=== PATIENT | male | born 1965 | race Caucasian/White ===

== ENCOUNTER 2021-09-05 15:59 | Inpatient (IN) | payer BC, SELFPAY ==
--- NOTE | ~2021-09-05 | XR_ITS ---
EXAMINATION: XR KNEE, LEFT CLINICAL INFORMATION: Trauma COMPARISON: Left knee radiographs 08/15/2015 TECHNIQUE: Four views of the left knee. FINDINGS: There are bicompartmental degenerative changes present predominantly involving the medial compartment with narrowing and some osteophytes as well as patellofemoral compartment with some posterior osteophytes. Compared to the prior study from 2016, there has been a somewhat dramatic change in the overall appearance of the bones which have a somewhat moth-eaten appearance with some cortical thickening. There is a suggestion of a lytic lesion present in the proximal fibula best seen on the lateral radiograph. Further evaluation with radionuclide bone scan and/or MRI is indicated. XR/XR knee LT 3V IMPRESSION: 1. No evidence of a traumatic injury. 2. Degenerative changes present in the knee. 3. New abnormal overall appearance with a moth-eaten appearance with some cortical thickening and question of lytic lesions. Radionuclide bone scan and/or MRI is recommended for further evaluation.
--- NOTE | ~2021-09-05 | CT_ITS ---
EXAMINATION: CT ANGIOGRAM OF THE CHEST WITH AND WITHOUT CONTRAST (CT PULMONARY ANGIOGRAM FOR PE) CLINICAL INFORMATION: Reason for Exam tachycardia COMPARISON: None TECHNIQUE: Prior to contrast administration, noncontrast localization images were obtained. Subsequently, multidetector volumetric imaging was performed from the thoracic inlet to below the diaphragms following the administration of 80 mL Omnipaque 350 intravenous contrast. No contrast reaction reported Sagittal, coronal, and MIP oblique sagittal reformatted images were obtained on the CT workstation, uploaded to PACS, and reviewed. This CT examination was performed using dose optimization techniques as appropriate, variously including the following: *Automated exposure control *Adjustment of mA and/or kV according to patient size (this includes techniques or standardized protocols for targeted exams where dose is matched to indication/reason for exam; i.e. extremities or head) *Use of iterative reconstruction technique Total exam dose-length product 282 mGy-cm FINDINGS: QUALITY OF STUDY/CONTRAST BOLUS: Satisfactory. PULMONARY ARTERIES: No central or segmental pulmonary emboli. THORACIC AORTA: No aneurysm or dissection. LUNG: No focal consolidation, nodules or masses. Dependent atelectasis/groundglass changes are present. PLEURA: No pleural effusion or pneumothorax. MEDIASTINUM: Normal heart size. No pericardial effusion. No hilar or mediastinal lymphadenopathy. No evidence of septal bowing or right heart strain. CHEST WALL/AXILLA: No axillary or internal mammary lymphadenopathy. OSSEOUS STRUCTURES: No acute or suspicious osseous abnormality. UPPER ABDOMEN: There is marked fatty infiltration of the pancreas. Hepatic steatosis is present. There is mild splenomegaly No reflux of contrast into the hepatic veins to suggest elevated right heart pressures. CT/CT angio chest PE protocol IMPRESSION: 1. No evidence of pulmonary emboli. 2. Incidental findings including hepatic steatosis and mild splenomegaly. VTE: negative
--- NOTE | ~2021-09-05 | XR_ITS ---
EXAMINATION: XR CHEST CLINICAL INFORMATION: Tachycardia. COMPARISON: No similar priors. TECHNIQUE: AP view of the chest was obtained. FINDINGS: Normal appearance of the cardiomediastinal silhouette. No focal airspace opacities, pleural effusions or pneumothorax. No acute osseous abnormalities. XR/XR chest 1V IMPRESSION: No acute cardiopulmonary findings.
--- NOTE | ~2021-09-05 | XR_ITS ---
EXAMINATION: XR TOES, LEFT CLINICAL INFORMATION: Left first digit swelling COMPARISON: None TECHNIQUE: 3 views of the left toes were obtained. FINDINGS: There is irregularity at the base of the first digit distal phalanx. Osteophytes and sclerosis are seen at this location. Subtle lucency at the articular aspect may represent a nondisplaced fracture of the most medial portion of the distal phalanx base. Moderate degenerative change at the first metatarsophalangeal joint with narrowing and osteophyte formation. Sclerosis present. Mild degenerative change of the midfoot with osteophyte formation. Medial soft tissue swelling. XR/XR toe LT min 2V IMPRESSION: Degenerative changes at the first metatarsophalangeal joint and first interphalangeal joint. Subtle lucency extending to the articulation at the medial aspect of the base of the first digit distal phalanx could represent a nondisplaced fracture. Correlate with location of pain.
[2021-09-05 16:04] VITALS: BP 113/86; PULSE 156; RESP 24; TEMP 36.3; O2SAT 97; BMI 25.4
--- NOTE | 2021-09-05 16:11 | ECG_ITS ---
Test Reason : tachycardia Blood Pressure : / mmHG Vent. Rate : 151 BPM Atrial Rate : 151 BPM P-R Int : 126 ms QRS Dur : 072 ms QT Int : 260 ms P-R-T Axes : 058 267 052 degrees QTc Int : 412 ms Sinus tachycardia Right superior axis deviation Low voltage QRS Inferior infarct , age undetermined Abnormal ECG No previous ECGs available Referred By: Generic ED Physician Electronically Signed By:KRISTIAN JEFFERY
--- NOTE | 2021-09-05 16:37 | ED_ITS ---
HPI - General Adult General Chief complaint: Weakness Stated complaint: weakness Time Seen by Provider: 09/05/21 16:27 Source: patient and RN notes reviewed History of Present Illness HPI narrative: Patient complaining of general malaise and general weakness getting progressively worse over the last 3 weeks. Patient tested positive for COVID approximately 3 weeks ago. He states his breathing occasionally was difficult but has since recovered. Over the past week, however, he has been getting progressively weaker. He describes it as a general weakness. He was initially able to ambulate 4 days ago without assistance but feeling ?shaky?. He then started using a cane. Today he cannot ambulate without assistance. He denies pain. He states his appetite has been very diminished but he has been drinking liquids. He states his appetite came back yesterday 88 yesterday and today. No abdominal pain. No urinary symptoms. No history of similar issues. He states he used to drink alcohol and daily but cut down significantly since he was diagnosed with COVID and now has stopped altogether. Related Data Home Medications Medication Instructions Recorded Confirmed cholecalciferol (vitamin D3) 25 25 mcg PO DAILY 09/05/21 09/05/21 mcg (1,000 unit) tablet multivitamin 1 tab PO DAILY 09/05/21 09/05/21 Allergies Allergy/AdvReac Type Severity Reaction Status Date / Time No Known Allergies Allergy Verified 09/05/21 16:09 Review of Systems Verdana 4l Constitutional: Verdana 4d Comments: Verdana 4d Verdana 4d Verdana 4d General weakness Verdana 4d Verdana 4l Cardiovascular: Verdana 4d Comments: Verdana 4d Verdana 4d Verdana 4d No chest pain or palpitations Verdana 4d Verdana 4l Respiratory: Verdana 4d Verdana 4d Comments: Verdana 4d Verdana 4d No dyspnea or cough at this time Verdana 4d Verdana 4l Gastrointestinal: Verdana 4d Comments: Verdana 4d Verdana 4d Verdana 4d No nausea vomiting diarrhea. Positive constipation. Positive decreased appetite which has resolved Verdana 4d Verdana 4l Genitourinary: Verdana 4d Verdana 4d Comments: Verdana 4d Verdana 4d No dysuria or hematuria. Verdana 4d Verdana 4l Musculoskeletal: Verdana 4d Comments: Verdana 4d Verdana 4d Verdana 4d No calf pain or tenderness Verdana 4d Verdana 4l Integumentary/Breasts: Verdana 4d Comments: Verdana 4d Verdana 4d Verdana 4d No rash Verdana 4d Verdana 4l Neurologic: Verdana 4d Verdana 4d Comments: Verdana 4d Verdana 4d No focal weakness Verdana 4d [facility] Social History Social History Advance Directives: No Advance Directives Information Provided: No Physical Exam Verdana 4l Vital Signs: Verdana 4d Verdana 4d Vital Signs: Verdana 4d Verdana 4Bd Last Vital Signs Verdana 4d Warm In New 4d Warm In New 4d Temp 97.9 F 09/05/21 20:02 Warm In New 4d Pulse 110 H 09/05/21 20:02 Warm In New 4d Resp 20 09/05/21 20:02 BP 131/85 09/05/21 20:02 Pulse Ox 98 09/05/21 20:02 BMI result Body Mass Index 25.4 Tachycardic to 150 beats per minute Const: Other: Awake and alert in no acute distress Resp: Other: Clear and equal bilaterally without wheezes rales or rhonchi Cardio: Other: Tachycardic and regular at about 150 beats per minute Jugular venous distension: no JVD Skin: Other: Warm and dry Neuro: Other: Nonfocal neurologic exam. Moves all 4 extremities equally. No facial droop. No aphasia. Extrem: Other: No calf tenderness Course Course Course Narrative: Patient with generalized weakness and tachycardia approximately 3 weeks post onset of COVID-19 symptoms. Alcohol abstinence syndrome Pneumonia Pulmonary embolism Dehydration Malnutrition Atrial flutter 6:20 p.m.. Patient's heart rate is now 115 after IV fluids and Ativan IV. Patient states he is feeling somewhat better but still weak. Upon further discussion with patient appears he might of been having visual hallucinations over the past 24 hours or so, consistent with alcohol abstinence syndrome. Will order a dose of phenobarbital IM. Timing and Mark. Hospitalization 6:42 p.m.. Patient apparently attempted to get out of bed slipped to the floor. Complains of contusion to left knee but denies any significant discomfort. X-ray ordered. Haldol IV ordered as well. 7:22 p.m.. X-ray without fracture my interpretation. Radiology reading pending Medical Decision Making Lab Data Result diagrams: 09/05/21 17:18 09/05/21 17:17 Labs: Lab Results 09/05/21 09/05/21 09/05/21 Range/Units 17:17 17:17 17:17 WBC (4.8-10.8) X10*3/uL RBC (4.60-5.80) X10*6/uL Hgb (14.0-18.0) g/dl Hct (42.0-52.0) % MCV (80.0-98.0) fL MCH (27.0-33.0) pg MCHC (31.0-36.0) g/dl RDW (11.0-16.0) % Plt Count (160-400) X10*3/uL MPV (9.4-12.4) fL Immature Gran % (Auto) (0.0-0.4) % Neut % (Auto) (45-73) % Lymph % (Auto) (20-40) % [place] % (Auto) (2-11) % Eos % (Auto) (0-4) % Baso % (Auto) (0-2) % Lymph # (Auto) (1.2-4.9) X10*3/uL [place] # (Auto) (0.1-1.2) X10*3/uL Eos # (Auto) (0.0-0.4) X10*3/uL Baso # (Auto) (0.0-0.2) X10*3/uL Abs Immat Gran (auto) (0.00-0.03) X10*3/uL Absolute Neuts (auto) (2.0-8.3) x10*3/uL Absolute Nucleated RBC (0.0-0.012) X10*3/uL Nucleated RBC % (auto) (0.0-0.2) /100WBC D-Dimer High Sensitivty 288 NG/ML Sodium 135 (135-145) mmol/L Potassium 3.6 (3.3-5.1) mmol/L Chloride 100 (96-108) mmol/L Carbon Dioxide 24 (22-29) mmol/L Anion Gap 15 (12-20) BUN 14 (9-16) mg/dL Creatinine 0.81 (0.5-1.4) mg/dL Estim Creat Clear Calc 99.4 Estimated GFR > 60 Random Glucose 103 (60-115) mg/dL Lactic Acid 1.1 (0.5-2.0) mmol/L Calcium 8.3 L (8.4-10.2) mg/dL Total Bilirubin 1.1 H (0.0-1.0) mg/dL AST 33 (5-37) U/L ALT 27 (0-40) U/L Alkaline Phosphatase 95 (39-117) U/L Troponin I High Sens (<3.5-35.0) ng/L B-Natriuretic Peptide (<100) pg/mL Total Protein 6.3 L (6.5-8.0) g/dL Albumin 3.1 L (3.5-5.0) g/dL TSH (0.32-4.0) uIU/mL COVID-19 (THEO) (Negative) COVID-19 Clin Com 09/05/21 09/05/21 09/05/21 Range/Units 17:17 17:17 17:17 WBC (4.8-10.8) X10*3/uL RBC (4.60-5.80) X10*6/uL Hgb (14.0-18.0) g/dl Hct (42.0-52.0) % MCV (80.0-98.0) fL MCH (27.0-33.0) pg MCHC (31.0-36.0) g/dl RDW (11.0-16.0) % Plt Count (160-400) X10*3/uL MPV (9.4-12.4) fL Immature Gran % (Auto) (0.0-0.4) % Neut % (Auto) (45-73) % Lymph % (Auto) (20-40) % [place] % (Auto) (2-11) % Eos % (Auto) (0-4) % Baso % (Auto) (0-2) % Lymph # (Auto) (1.2-4.9) X10*3/uL [place] # (Auto) (0.1-1.2) X10*3/uL Eos # (Auto) (0.0-0.4) X10*3/uL Baso # (Auto) (0.0-0.2) X10*3/uL Abs Immat Gran (auto) (0.00-0.03) X10*3/uL Absolute Neuts (auto) (2.0-8.3) x10*3/uL Absolute Nucleated RBC (0.0-0.012) X10*3/uL Nucleated RBC % (auto) (0.0-0.2) /100WBC D-Dimer High Sensitivty NG/ML Sodium (135-145) mmol/L Potassium (3.3-5.1) mmol/L Chloride (96-108) mmol/L Carbon Dioxide (22-29) mmol/L Anion Gap (12-20) BUN (9-16) mg/dL Creatinine (0.5-1.4) mg/dL Estim Creat Clear Calc Estimated GFR Random Glucose (60-115) mg/dL Lactic Acid (0.5-2.0) mmol/L Calcium (8.4-10.2) mg/dL Total Bilirubin (0.0-1.0) mg/dL AST (5-37) U/L ALT (0-40) U/L Alkaline Phosphatase (39-117) U/L Troponin I High Sens 4.0 (<3.5-35.0) ng/L B-Natriuretic Peptide 35 (<100) pg/mL Total Protein (6.5-8.0) g/dL Albumin (3.5-5.0) g/dL TSH 2.37 (0.32-4.0) uIU/mL COVID-19 (THEO) Negative (Negative) COVID-19 Clin Com See Note 09/05/21 Range/Units 17:18 WBC 12.1 H (4.8-10.8) X10*3/uL RBC 4.04 L (4.60-5.80) X10*6/uL Hgb 14.7 (14.0-18.0) g/dl Hct 40.4 L (42.0-52.0) % MCV 100.0 H (80.0-98.0) fL MCH 36.4 H (27.0-33.0) pg MCHC 36.4 H (31.0-36.0) g/dl RDW 12.0 (11.0-16.0) % Plt Count 206 (160-400) X10*3/uL MPV 10.2 (9.4-12.4) fL Immature Gran % (Auto) 0.8 H (0.0-0.4) % Neut % (Auto) 81.8 H (45-73) % Lymph % (Auto) 8.2 L (20-40) % [place] % (Auto) 8.8 (2-11) % Eos % (Auto) 0.2 (0-4) % Baso % (Auto) 0.2 (0-2) % Lymph # (Auto) 1.0 L (1.2-4.9) X10*3/uL [place] # (Auto) 1.1 (0.1-1.2) X10*3/uL Eos # (Auto) 0.0 (0.0-0.4) X10*3/uL Baso # (Auto) 0.0 (0.0-0.2) X10*3/uL Abs Immat Gran (auto) 0.10 H (0.00-0.03) X10*3/uL Absolute Neuts (auto) 9.9 H (2.0-8.3) x10*3/uL Absolute Nucleated RBC 0.000 (0.0-0.012) X10*3/uL Nucleated RBC % (auto) 0.0 (0.0-0.2) /100WBC D-Dimer High Sensitivty NG/ML Sodium (135-145) mmol/L Potassium (3.3-5.1) mmol/L Chloride (96-108) mmol/L Carbon Dioxide (22-29) mmol/L Anion Gap (12-20) BUN (9-16) mg/dL Creatinine (0.5-1.4) mg/dL Estim Creat Clear Calc Estimated GFR Random Glucose (60-115) mg/dL Lactic Acid (0.5-2.0) mmol/L Calcium (8.4-10.2) mg/dL Total Bilirubin (0.0-1.0) mg/dL AST (5-37) U/L ALT (0-40) U/L Alkaline Phosphatase (39-117) U/L Troponin I High Sens (<3.5-35.0) ng/L B-Natriuretic Peptide (<100) pg/mL Total Protein (6.5-8.0) g/dL Albumin (3.5-5.0) g/dL TSH (0.32-4.0) uIU/mL COVID-19 (THEO) (Negative) COVID-19 Clin Com Critical Care Time Critical Care Time Critical Care Time: Yes Total Critical Care Time: 100 Attestation: Critical care time outside of separately billable procedures. Critical care included multiple re-evaluations and multiple medications secondary to mental status change secondary to delirium tremens and severe alcohol abstinence syndrome Discharge Plan Discharge Clinical Impression: Delirium tremens Patient Disposition: Admitted As Inpatient
[2021-09-05 16:53] VITALS: BP 129/91; PULSE 138; RESP 16; TEMP 36.8; O2SAT 97
[2021-09-05] MEDS: 0.9 % Sodium Chloride 1,000 ML 999 ML IV ×2 (17:22→21:10)
[2021-09-05 17:26] LABS: MANUAL DIFF FLAG NO
[2021-09-05] MEDS: LORazepam 2 MG/ML VIAL IVPUSH (17:26)
[2021-09-05 17:28] LABS: Basophils Percent Auto 0.2 % (0-2); Eosinophils Percent Auto 0.2 % (0-4); Hematocrit 40.4 % (42.0-52.0); Hemoglobin 14.7 g/dl (14.0-18.0); Imm Gran Pct Auto 0.8 % (0.0-0.4); Lymphocytes Percent Auto 8.2 % (20-40); Mean Corpuscular HGB Conc 36.4 g/dl (31.0-36.0); Mean Corpuscular Hemoglobin 36.4 pg (27.0-33.0); Mean Platelet Volume 10.2 fL (9.4-12.4); Monocytes Absolute Auto 1.1 X10*3/uL (0.1-1.2); Monocytes Percent Auto 8.8 % (2-11); Neutrophils Absolute Auto 9.9 x10*3/uL (2.0-8.3); Neutrophils Percent Auto 81.8 % (45-73); Platelet Count 206 X10*3/uL (160-400); Red Blood Count 4.04 X10*6/uL (4.60-5.80); White Blood Count 12.1 X10*3/uL (4.8-10.8)
[2021-09-05 17:38] LABS: D Dimer High Sensitivity 288 NG/ML
[2021-09-05 17:43] LABS: Alanine Aminotransferase 27 U/L (0-40); Albumin Level 3.1 g/dL (3.5-5.0); Alkaline Phosphatase 95 U/L (39-117); Anion Gap 15 (12-20); Aspartate Amino Transferase 33 U/L (5-37); Bilirubin Total 1.1 mg/dL (0.0-1.0); Blood Urea Nitrogen 14 mg/dL (9-16); Calcium 8.3 mg/dL (8.4-10.2); Carbon Dioxide 24 mmol/L (22-29); Chloride 100 mmol/L (96-108); Creatinine Clr Calc Pharmacy 99.4; Estimated Glomerular Filt Rate > 60; Glucose Random 103 mg/dL (60-115); Potassium 3.6 mmol/L (3.3-5.1); Sodium 135 mmol/L (135-145); Total Protein 6.3 g/dL (6.5-8.0)
[2021-09-05 17:46] LABS: B Type Natriuretic Peptide 35 pg/mL (<100)
[2021-09-05 17:54] LABS: COVID-19 Test Negative (Negative); IDNOW Serial# 55D5AD1C
[2021-09-05 18:02] LABS: TSH reflex Free T4 2.37 uIU/mL (0.32-4.0)
[2021-09-05 18:40] VITALS: BP 148/77; PULSE 119; RESP 16; O2SAT 97
--- NOTE | 2021-09-05 19:06 | PHA.MEDREC ---
Pharmacy Consult ? Medication Reconciliation Pharmacy has completed the medication reconciliation.
[2021-09-05] MEDS: Folic Acid 1 MG in 0.9 % Sodium Chloride 50 ML 100.4 MG IV (19:08)
[2021-09-05] MEDS: Haloperidol Lactate 5 MG/ML VIAL 2 MG IVPUSH (19:14)
[2021-09-05] MEDS: PHENobarbitaL sodium 130 MG/ML VIAL IM (19:14)
[2021-09-05 20:02] VITALS: BP 131/85; PULSE 110; RESP 20; TEMP 36.6; O2SAT 98
[2021-09-05] MEDS: Thiamine HCL 100 MG in 0.9 % Sodium Chloride 100 ML 202 MG IV (20:03)
[2021-09-05 20:14] LABS: Appearance Urine CLEAR; Color Urine DK YELLOW; Glucose Urine UA NEG (NEG); Leukocyte Esterase Urine NEG (NEG); Nitrite Urine NEG (NEG); Urine Blood NEG (NEG); Urine Ketones 5 MG/DL (NEG); Urine Protein TRACE MG/DL (NEG-TRACE)
--- NOTE | 2021-09-05 20:18 | P.HPHOSP_ITS ---
History of Present Illness Date of Service: 09/05/21 Chief Complaint: Generalized weakness 56-year-old male with a past medical history of alcohol abuse; recently positive COVID-19 about 3 weeks ago; presented to the hospital with a chief complaint of generalized weakness. Patient reports that over the past 2-3 weeks he has been having gradually worsening weakness. To the point he needed assistance to do his activities; hence decided to come to the ER for further evaluation. Reports that he drinks alcohol on a regular basis but since he old COVID positive he tried to cut down on his alcohol. Denies any chest pain or palpitations Denies any fever chills cough or sputum production. Denies any shortness of breath. denies any numbness tingling or focal weakness. Review of all other systems is negative except mentioned above ER course: Per ER team patient exam was essentially benign, noted to be mild nourished, tachycardic, blood pressure stable, saturating 98% on room air, chest x-ray showed no acute findings, repeat COVID test negative, patient was shaky and tremulous; also complains of intermittent visual hallucinations. Patient was started on phenobarb protocol. Also ordered for CT chest with PE protocol given mildly positive D-dimer -results pending; admitted to the hospital for further management PMFSH Social History Advance Directives: No Advance Directives Information Provided: No Meds Allergies Allergy/AdvReac Type Severity Reaction Status Date / Time No Known Allergies Allergy Verified 09/05/21 16:09 Active Medications: Current Medications Acetaminophen (Acetaminophen 325 Mg Tablet) 650 mg PO Q6H PRN PRN Reason: Pain, Mild (Pain Scale 1-3) Enoxaparin Sodium (Enoxaparin Sodium 40 Mg/0.4 Ml Syringe) 40 mg SUBCUT Q24H [place] Famotidine (Famotidine 20 Mg Tablet) 20 mg PO BID [place] Folic Acid (Folic Acid 1 Mg Tablet) 1 mg PO DAILY [place] Stop: 09/09/21 08:59 Hydroxyzine HCl (Hydroxyzine Hcl 25 Mg Tablet) 25 mg PO Q6H PRN PRN Reason: Anxiety Sodium Chloride (Ns) 1,000 mls @ 999 mls/hr IV .Q1H1M [place] Stop: 09/05/21 20:45 Dextrose/Sodium Chloride (D51/2ns) 1,000 mls @ 100 mls/hr IVCONT .Q10H [place] Melatonin (Melatonin 3 Mg Tablet) 6 mg PO BEDTIME PRN PRN Reason: Insomnia Multivitamins/Vitamin C (Multivitamin Tablet) 1 tab PO DAILY PENDING SALE TO [facility] Stop: 09/09/21 08:59 Pharmacy Consult (Consult Rx Perform Med Rec) 1 each MISCELLANE ONCE PRN PRN Reason: Consult order Senna (Sennosides 8.6 Mg Tablet) 17.2 mg PO BEDTIME PRN PRN Reason: Constipation Sodium Chloride (0.9 % Sodium Chloride Flush 3 Ml Syringe) 3 ml IVFLUSH QSHIFT PENDING SALE TO [facility] Thiamine HCl (Thiamine Hcl 100 Mg Tablet) 100 mg PO DAILY PENDING SALE TO [facility] Stop: 09/09/21 08:59 Home Medications Medication Instructions Recorded Confirmed Last Taken Type cholecalciferol 25 mcg PO DAILY 09/05/21 09/05/21 Unknown History (vitamin D3) 25 mcg (1,000 unit) tablet multivitamin 1 tab PO DAILY 09/05/21 09/05/21 Unknown History Physical Exam Verdana 4l Vital Signs and Narrative: Verdana 4d Verdana 4d Vital Signs: Verdana 4d Verdana 4Bd Last Vital Signs Verdana 4d Bricklayer Supervisor New 4d Bricklayer Supervisor New 4d Temp 97.9 F 09/05/21 20:02 Bricklayer Supervisor New 4d Pulse 110 H 09/05/21 20:02 Bricklayer Supervisor New 4d Resp 20 09/05/21 20:02 BP 131/85 09/05/21 20:02 Pulse Ox 98 09/05/21 20:02 BMI result Body Mass Index 25.4 Gen: Appears be in no acute distress. Thin built HEENT: NCAT, dry mucosa. Pulmonary: Vesicular breath sounds, fair air entry CVS: Normal S1-S2 Abdomen: BS+, Soft, Nontender Extremities: Warm well perfused Neuro: Alert and awake. Tremulous, shaky Results Labs CBC and Chem 7: 09/05/21 17:18 09/05/21 17:17 Labs: Laboratory Results - last 24 hr 09/05/21 09/05/21 09/05/21 17:17 17:17 17:17 MCV MCH MCHC RDW Plt Count MPV Immature Gran % (Auto) Neut % (Auto) Lymph % (Auto) [place] % (Auto) Eos % (Auto) Baso % (Auto) Lymph # (Auto) [place] # (Auto) Eos # (Auto) Baso # (Auto) Abs Immat Gran (auto) Absolute Neuts (auto) Absolute Nucleated RBC Nucleated RBC % (auto) D-Dimer High Sensitivty 288 Anion Gap 15 Estim Creat Clear Calc 99.4 Estimated GFR > 60 Random Glucose 103 Calcium 8.3 L Total Bilirubin 1.1 H AST 33 ALT 27 Alkaline Phosphatase 95 Troponin I High Sens 4.0 B-Natriuretic Peptide 35 Total Protein 6.3 L Albumin 3.1 L TSH Urine Color Urine Appearance Urine pH Ur Specific [place] Urine Protein Urine Glucose (UA) Urine Ketones Urine Blood Urine Nitrite Ur Leukocyte Esterase COVID-19 (THEO) COVID-19 Clin Com 09/05/21 09/05/21 09/05/21 17:17 17:17 17:18 MCV 100.0 H MCH 36.4 H MCHC 36.4 H RDW 12.0 Plt Count 206 MPV 10.2 Immature Gran % (Auto) 0.8 H Neut % (Auto) 81.8 H Lymph % (Auto) 8.2 L [place] % (Auto) 8.8 Eos % (Auto) 0.2 Baso % (Auto) 0.2 Lymph # (Auto) 1.0 L [place] # (Auto) 1.1 Eos # (Auto) 0.0 Baso # (Auto) 0.0 Abs Immat Gran (auto) 0.10 H Absolute Neuts (auto) 9.9 H Absolute Nucleated RBC 0.000 Nucleated RBC % (auto) 0.0 D-Dimer High Sensitivty Anion Gap Estim Creat Clear Calc Estimated GFR Random Glucose Calcium Total Bilirubin AST ALT Alkaline Phosphatase Troponin I High Sens B-Natriuretic Peptide Total Protein Albumin TSH 2.37 Urine Color Urine Appearance Urine pH Ur Specific [place] Urine Protein Urine Glucose (UA) Urine Ketones Urine Blood Urine Nitrite Ur Leukocyte Esterase COVID-19 (THEO) Negative COVID-19 Clin Com See Note 09/05/21 20:05 MCV MCH MCHC RDW Plt Count MPV Immature Gran % (Auto) Neut % (Auto) Lymph % (Auto) [place] % (Auto) Eos % (Auto) Baso % (Auto) Lymph # (Auto) [place] # (Auto) Eos # (Auto) Baso # (Auto) Abs Immat Gran (auto) Absolute Neuts (auto) Absolute Nucleated RBC Nucleated RBC % (auto) D-Dimer High Sensitivty Anion Gap Estim Creat Clear Calc Estimated GFR Random Glucose Calcium Total Bilirubin AST ALT Alkaline Phosphatase Troponin I High Sens B-Natriuretic Peptide Total Protein Albumin TSH Urine Color DK YELLOW Urine Appearance CLEAR Urine pH 6.0 Ur Specific [place] 1.010 Urine Protein TRACE Urine Glucose (UA) NEG Urine Ketones 5 Urine Blood NEG Urine Nitrite NEG Ur Leukocyte Esterase NEG COVID-19 (THEO) COVID-19 Clin Com Imaging Radiologist's Impressions: Impressions Chest X-Ray 09/05/21 16:44 IMPRESSION: No acute cardiopulmonary findings. Knee X-Ray 09/05/21 18:52 IMPRESSION: 1. No evidence of a traumatic injury. 2. Degenerative changes present in the knee. 3. New abnormal overall appearance with a moth-eaten appearance with some cortical thickening and question of lytic lesions. Radionuclide bone scan and/or MRI is recommended for further evaluation. Assessment and Plan (1) Alcohol withdrawal: Status: Acute Plan 56-year-old male with a past medical history of alcohol abuse; recently positive COVID-19 about 3 weeks ago; presented to the hospital with a chief complaint of generalized weakness. Alcohol withdrawal: Patient started on phenobarb protocol. Continue thiamine folate and multivitamins. Seizure precautions and aspiration precautions. Fall: Mechanical in nature. Patient fell on the knees in the ER. Knee x-rays were negative. Fall precautions. Recent history of COVID-19 positive: Patient currently saturating 98% on room air. Denies respiratory symptoms. Supportive care. Repeat COVID test negative. Mildly positive D-dimer: CT chest --no PE DVT prophylaxis: Lovenox Code status: Full code Quality Stroke Does the patient have a stroke diagnosis?: No VTE Prior VTE?: No VTE Risk Level:: Medical - moderate - high VTE Device Contraindication: Treatment Not Indicated VTE Drug Contraindication: N/A - Med Ordered
[2021-09-05] MEDS: iohexoL 350 MG/ML 100 ML INFUS..BTL IV (20:56)
[2021-09-05 21:01] LABS: Lactic Acid 1.1 mmol/L (0.5-2.0)
[2021-09-05] MEDS: Enoxaparin Sodium 40 MG/0.4 ML SYRINGE SUBCUT (21:10)
[2021-09-05] MEDS: Famotidine 20 MG TABLET PO (21:13)
[2021-09-05 22:01] VITALS: BP 148/88; PULSE 101; RESP 18; TEMP 36.6; O2SAT 98
[2021-09-05] MEDS: Dextrose 5 % and 0.45 % NaCl 1,000 ML 100 ML IVCONT (23:02)
[2021-09-06] VITALS (7 sets, daily range): BP systolic 103–158; BP diastolic 66–96; PULSE 96–110; RESP 18–20; TEMP 36.5–37.2; O2SAT 98–100; BMI 25.5
[2021-09-06] MEDS: Acetaminophen 325 MG TABLET 650 MG PO ×3 (00:38→14:23)
[2021-09-06 06:33] LABS: MANUAL DIFF FLAG NO
[2021-09-06 06:46] LABS: Basophils Percent Auto 0.3 % (0-2); Eosinophils Percent Auto 0.4 % (0-4); Hemoglobin 12.8 g/dl (14.0-18.0); Imm Gran Abs Auto 0.05 X10*3/uL (0.00-0.03); Imm Gran Pct Auto 0.7 % (0.0-0.4); Lymphocytes Percent Auto 14.9 % (20-40); Mean Corpuscular HGB Conc 35.6 g/dl (31.0-36.0); Mean Corpuscular Hemoglobin 36.8 pg (27.0-33.0); Mean Corpuscular Volume 103.4 fL (80.0-98.0); Mean Platelet Volume 10.7 fL (9.4-12.4); Monocytes Absolute Auto 0.7 X10*3/uL (0.1-1.2); Monocytes Percent Auto 9.7 % (2-11); Neutrophils Absolute Auto 5.1 x10*3/uL (2.0-8.3); Platelet Count 185 X10*3/uL (160-400); Red Blood Count 3.48 X10*6/uL (4.60-5.80); Red Cell Distribution Width 12.2 % (11.0-16.0); White Blood Count 6.9 X10*3/uL (4.8-10.8)
[2021-09-06 06:52] LABS: Anion Gap 12 (12-20); Blood Urea Nitrogen 13 mg/dL (9-16); Calcium 7.7 mg/dL (8.4-10.2); Carbon Dioxide 26 mmol/L (22-29); Chloride 101 mmol/L (96-108); Creatinine Clr Calc Pharmacy 113.4; Estimated Glomerular Filt Rate > 60; Glucose Random 84 mg/dL (60-115); Potassium 3.3 mmol/L (3.3-5.1); Sodium 136 mmol/L (135-145)
--- NOTE | 2021-09-06 09:25 | MHC.CM.PN ---
Male 56 DX ETOH W/D He lives with his . He was independent prior to joelle covid 3 weeks ago. He reports poor po intake, during that time. He has weakness and deconditioning. DP Home with services vs STR. Family will transport pt home at discharge.
[2021-09-06] MEDS: 0.9 % Sodium Chloride Flush 3 ML SYRINGE IVFLUSH ×3 (10:36→19:57)
[2021-09-06] MEDS: Thiamine HCL 100 MG TABLET PO (10:38)
[2021-09-06] MEDS: Folic Acid 1 MG TABLET PO (10:38)
[2021-09-06] MEDS: Multivitamin TABLET 1 TAB PO (10:38)
[2021-09-06] MEDS: PHENobarbitaL sodium 130 MG/ML VIAL 226 MG IM (10:39)
[2021-09-06] MEDS: Famotidine 20 MG TABLET PO ×2 (10:39→19:57)
--- NOTE | 2021-09-06 10:47 | P.PNIM_ITS ---
Subjective Subjective Date of Service: 09/06/21 Interval History: cc: withdrawal interval history: jittery Cardiovascular Cardiovascular: Reports no additional cardiovascular complaints Respiratory Respiratory: Reports no additional respiratory complaints Physical Exam Verdana 4l Vital Signs: Verdana 4d Verdana 4d Vital Signs: Verdana 4d Verdana 4Bd Last Vital Signs Verdana 4d Mineral Technologist New 4d Mineral Technologist New 4d Temp 98.6 F 09/06/21 04:00 Mineral Technologist New 4d Pulse 110 H 09/06/21 04:00 Mineral Technologist New 4d Resp 20 09/06/21 04:00 BP 140/82 H 09/06/21 04:00 Pulse Ox 100 09/06/21 04:00 BMI result Body Mass Index 25.5 General: AO X 3, no acute distress, tremulous Resp: CTA bilateral, no accessory muscles used CVS: S1,S2,RRR GI: soft, non tender, non distended Neuro: motor grossly intact, alert Psych: appropriate affect, appropriate insight Objective Data Active Medications Acetaminophen (Acetaminophen 325 Mg Tablet) 650 mg PO Q6H PRN PRN Reason: Pain, Mild (Pain Scale 1-3) Last Admin: 09/06/21 06:00 Dose: 650 mg Documented by: KIET Enoxaparin Sodium (Enoxaparin Sodium 40 Mg/0.4 Ml Syringe) 40 mg SUBCUT Q24H [facility] Last Admin: 09/05/21 21:10 Dose: 40 mg Documented by: SUMA Famotidine (Famotidine 20 Mg Tablet) 20 mg PO BID [facility] Last Admin: 09/06/21 10:39 Dose: 20 mg Documented by: AMILCAR Folic Acid (Folic Acid 1 Mg Tablet) 1 mg PO DAILY [facility] Stop: 09/09/21 08:59 Last Admin: 09/06/21 10:38 Dose: 1 mg Documented by: AMILCAR Hydroxyzine HCl (Hydroxyzine Hcl 25 Mg Tablet) 25 mg PO Q6H PRN PRN Reason: Anxiety Medication (No Benzodiazepines) 1 each MISCELLANE DAILY [facility] Melatonin (Melatonin 3 Mg Tablet) 6 mg PO BEDTIME PRN PRN Reason: Insomnia Multivitamins/Vitamin C (Multivitamin Tablet) 1 tab PO DAILY [facility] Stop: 09/09/21 08:59 Last Admin: 09/06/21 10:38 Dose: 1 tab Documented by: AMILCAR Pharmacy Consult (Consult Rx Perform Med Rec) 1 each MISCELLANE ONCE PRN PRN Reason: Consult order Phenobarbital (Phenobarbital 15 Mg Tablet) 45 mg PO BID [facility]; Protocol Stop: 09/08/21 09:01 Phenobarbital (Phenobarbital 15 Mg Tablet) 15 mg PO BID [facility]; Protocol Stop: 09/10/21 09:01 Phenobarbital (Phenobarbital 15 Mg Tablet) 15 mg PO DAILY [facility]; Protocol Stop: 09/12/21 09:01 Phenobarbital Sodium (Phenobarbital Sodium 130 Mg/Ml Vial) 170 mg IM Q3H [facility]; Protocol Stop: 09/06/21 15:01 Senna (Sennosides 8.6 Mg Tablet) 17.2 mg PO BEDTIME PRN PRN Reason: Constipation Sodium Chloride (0.9 % Sodium Chloride Flush 3 Ml Syringe) 3 ml IVFLUSH QSHIFT [facility] Last Admin: 09/06/21 10:36 Dose: 3 ml Documented by: AMILCAR Thiamine HCl (Thiamine Hcl 100 Mg Tablet) 100 mg PO DAILY [facility] Stop: 09/09/21 08:59 Last Admin: 09/06/21 10:38 Dose: 100 mg Documented by: AMILCAR Labs CBC & Chem 7: 09/06/21 06:03 09/06/21 06:03 Labs: Laboratory Results - last 24 hr 09/05/21 09/05/21 09/05/21 17:17 17:17 17:17 MCV MCH MCHC RDW Plt Count MPV Immature Gran % (Auto) Neut % (Auto) Lymph % (Auto) Ralls % (Auto) Eos % (Auto) Baso % (Auto) Lymph # (Auto) Ralls # (Auto) Eos # (Auto) Baso # (Auto) Abs Immat Gran (auto) Absolute Neuts (auto) Absolute Nucleated RBC Nucleated RBC % (auto) D-Dimer High Sensitivty 288 Anion Gap 15 Estim Creat Clear Calc 99.4 Estimated GFR > 60 Random Glucose 103 Lactic Acid 1.1 Calcium 8.3 L Total Bilirubin 1.1 H AST 33 ALT 27 Alkaline Phosphatase 95 B-Natriuretic Peptide Total Protein 6.3 L Albumin 3.1 L TSH Urine Color Urine Appearance Urine pH Ur Specific [place] Urine Protein Urine Glucose (UA) Urine Ketones Urine Blood Urine Nitrite Ur Leukocyte Esterase COVID-19 (THEO) COVID-19 Clin Com 09/05/21 09/05/21 09/05/21 17:17 17:17 17:17 MCV MCH MCHC RDW Plt Count MPV Immature Gran % (Auto) Neut % (Auto) Lymph % (Auto) Ralls % (Auto) Eos % (Auto) Baso % (Auto) Lymph # (Auto) Ralls # (Auto) Eos # (Auto) Baso # (Auto) Abs Immat Gran (auto) Absolute Neuts (auto) Absolute Nucleated RBC Nucleated RBC % (auto) D-Dimer High Sensitivty Anion Gap Estim Creat Clear Calc Estimated GFR Random Glucose Lactic Acid Calcium Total Bilirubin AST ALT Alkaline Phosphatase B-Natriuretic Peptide 35 Total Protein Albumin TSH 2.37 Urine Color Urine Appearance Urine pH Ur Specific [place] Urine Protein Urine Glucose (UA) Urine Ketones Urine Blood Urine Nitrite Ur Leukocyte Esterase COVID-19 (THEO) Negative COVID-19 Clin Com See Note 09/05/21 09/05/21 09/06/21 17:18 20:05 06:03 MCV 100.0 H 103.4 H MCH 36.4 H 36.8 H MCHC 36.4 H 35.6 RDW 12.0 12.2 Plt Count 206 185 MPV 10.2 10.7 Immature Gran % (Auto) 0.8 H 0.7 H Neut % (Auto) 81.8 H 74.0 H Lymph % (Auto) 8.2 L 14.9 L Ralls % (Auto) 8.8 9.7 Eos % (Auto) 0.2 0.4 Baso % (Auto) 0.2 0.3 Lymph # (Auto) 1.0 L 1.0 L Ralls # (Auto) 1.1 0.7 Eos # (Auto) 0.0 0.0 Baso # (Auto) 0.0 0.0 Abs Immat Gran (auto) 0.10 H 0.05 H Absolute Neuts (auto) 9.9 H 5.1 Absolute Nucleated RBC 0.000 0.000 Nucleated RBC % (auto) 0.0 0.0 D-Dimer High Sensitivty Anion Gap Estim Creat Clear Calc Estimated GFR Random Glucose Lactic Acid Calcium Total Bilirubin AST ALT Alkaline Phosphatase B-Natriuretic Peptide Total Protein Albumin TSH Urine Color DK YELLOW Urine Appearance CLEAR Urine pH 6.0 Ur Specific [place] 1.010 Urine Protein TRACE Urine Glucose (UA) NEG Urine Ketones 5 Urine Blood NEG Urine Nitrite NEG Ur Leukocyte Esterase NEG COVID-19 (THEO) COVID-19 Clin Com 09/06/21 06:03 MCV MCH MCHC RDW Plt Count MPV Immature Gran % (Auto) Neut % (Auto) Lymph % (Auto) Ralls % (Auto) Eos % (Auto) Baso % (Auto) Lymph # (Auto) Ralls # (Auto) Eos # (Auto) Baso # (Auto) Abs Immat Gran (auto) Absolute Neuts (auto) Absolute Nucleated RBC Nucleated RBC % (auto) D-Dimer High Sensitivty Anion Gap 12 Estim Creat Clear Calc 113.4 Estimated GFR > 60 Random Glucose 84 Lactic Acid Calcium 7.7 L D Total Bilirubin AST ALT Alkaline Phosphatase B-Natriuretic Peptide Total Protein Albumin TSH Urine Color Urine Appearance Urine pH Ur Specific [place] Urine Protein Urine Glucose (UA) Urine Ketones Urine Blood Urine Nitrite Ur Leukocyte Esterase COVID-19 (THEO) COVID-19 Clin Com Assessment and Plan (1) Alcohol withdrawal: Status: Acute Plan 56M presented with fall, found to be in alcohol withdrawal alcohol dependence with withdrawal phenobarb, montior on telemetry, monitor electrolytes and lfts ciwa alcoholic fatty liver alcohol cessation advised Quality Stroke Does the patient have a stroke diagnosis?: No VTE Prior VTE?: No VTE Risk Level:: Medical - moderate - high VTE Device Contraindication: Treatment Not Indicated VTE Drug Contraindication: N/A - Med Ordered
[2021-09-06] MEDS: PHENobarbitaL sodium 130 MG/ML VIAL 170 MG IM ×2 (14:22→17:48)
[2021-09-06] MEDS: hydrOXYzine HCL 25 MG TABLET PO (14:23)
--- NOTE | 2021-09-06 15:40 | MHC.CLN ---
RE: CONSULT RECOMMEND ADDING ENSURE BID TO INCREASE KCALS PT REPORTED POOR PO DURING ACUTE ILLNESS (COVID) PT IS 108%IBW INDICATES ADEQUATE WT FOR HT NO S/S MALNUTRITION AT THIS TIME MONITOR PO INTAKE CLOSELY
--- NOTE | 2021-09-06 18:30 | PC.NURSE ---
At 1820 the patient was attempting to sit on the edge of the bed to use the urinal and his legs gave out from under him. Kathy Villar, of the [employer], was his sitter and was able to reach him before he hit the floor; she was able to ease him down and she and I lifted him back into the bed. We discussed ways to use the urinal while lying in the bed and he agreed to not try to get to the edge of the bed again.
[2021-09-06] MEDS: Enoxaparin Sodium 40 MG/0.4 ML SYRINGE SUBCUT (19:56)
[2021-09-06] MEDS: PHENobarbitaL 15 MG TABLET 45 MG PO (19:56)
[2021-09-06] MEDS: Melatonin 3 MG TABLET 6 MG PO (19:57)
[2021-09-07] MEDS: Acetaminophen 325 MG TABLET 650 MG PO ×4 (01:12→23:44)
[2021-09-07 03:25] VITALS: BP 124/87; PULSE 115; RESP 18; TEMP 37; O2SAT 96
[2021-09-07 06:34] LABS: Hematocrit 36.9 % (42.0-52.0); Hemoglobin 13.4 g/dl (14.0-18.0); Mean Corpuscular HGB Conc 36.3 g/dl (31.0-36.0); Mean Corpuscular Hemoglobin 36.6 pg (27.0-33.0); Mean Corpuscular Volume 100.8 fL (80.0-98.0); Mean Platelet Volume 10.5 fL (9.4-12.4); Platelet Count 243 X10*3/uL (160-400); Red Blood Count 3.66 X10*6/uL (4.60-5.80); Red Cell Distribution Width 11.9 % (11.0-16.0); White Blood Count 9.2 X10*3/uL (4.8-10.8)
[2021-09-07 06:46] LABS: INTERNATIONAL NORM RATIO 1.1 (0.9-1.1); Prothrombin Time 12.7 SEC (9.9-13.0)
[2021-09-07 07:06] VITALS: BP 132/85; PULSE 105; RESP 17; TEMP 36.8; O2SAT 99
[2021-09-07 08:30] LABS: Alanine Aminotransferase 22 U/L (0-40); Albumin Level 2.8 g/dL (3.5-5.0); Alkaline Phosphatase 79 U/L (39-117); Anion Gap 15 (12-20); Aspartate Amino Transferase 31 U/L (5-37); Bilirubin Direct 0.5 mg/dL (0.0-0.5); Blood Urea Nitrogen 10 mg/dL (9-16); Calcium 8.1 mg/dL (8.4-10.2); Carbon Dioxide 25 mmol/L (22-29); Chloride 100 mmol/L (96-108); Creatinine Clr Calc Pharmacy 116.6; Estimated Glomerular Filt Rate > 60; Glucose Fasting 98 mg/dL (60-99); Potassium 3.3 mmol/L (3.3-5.1); Sodium 137 mmol/L (135-145); Total Protein 5.7 g/dL (6.5-8.0)
[2021-09-07 08:52] LABS: Folate 10.7 ng/mL (> or = 4.0); Vitamin B12 282 pg/mL (200-900)
[2021-09-07] MEDS: Famotidine 20 MG TABLET PO ×2 (09:02→20:12)
[2021-09-07] MEDS: Multivitamin TABLET 1 TAB PO (09:02)
[2021-09-07] MEDS: Folic Acid 1 MG TABLET PO (09:03)
[2021-09-07] MEDS: Thiamine HCL 100 MG TABLET PO (09:03)
[2021-09-07] MEDS: 0.9 % Sodium Chloride Flush 3 ML SYRINGE IVFLUSH ×3 (09:03→23:34)
[2021-09-07] MEDS: PHENobarbitaL 15 MG TABLET 45 MG PO ×2 (09:03→20:12)
--- NOTE | 2021-09-07 09:03 | MHC.CM.PN ---
Male 56 Covid recovered DX ETOH W/D PT eval complete. Recommendation from PT is STR. Referrals sent per patient preferences. Anticipate DC 2-3 days. The patient has a1:1 sitter for safety and fall prevention. He will transport via BLS.
[2021-09-07 10:54] VITALS: BP 132/85; PULSE 105; O2SAT 99
[2021-09-07 11:20] VITALS: BP 146/94; PULSE 113; RESP 18; TEMP 37.2; O2SAT 96
--- NOTE | 2021-09-07 11:44 | P.PNIM_ITS ---
Subjective Subjective Date of Service: 09/07/21 Interval History: cc: fall, withdrawal interval history: fell again yesterday Cardiovascular Cardiovascular: Reports no additional cardiovascular complaints Respiratory Respiratory: Reports no additional respiratory complaints Physical Exam Verdana 4l Vital Signs: Verdana 4d Verdana 4d Vital Signs: Verdana 4d Verdana 4Bd Last Vital Signs Verdana 4d Sack Cleaning Hand New 4d Sack Cleaning Hand New 4d Temp 99.0 F 09/07/21 11:20 Sack Cleaning Hand New 4d Pulse 113 H 09/07/21 11:20 Sack Cleaning Hand New 4d Resp 18 09/07/21 11:20 BP 146/94 H 09/07/21 11:20 Pulse Ox 96 09/07/21 11:20 BMI result Body Mass Index 25.5 General: AO X 3, no acute distress, tremulous Resp:? CTA bilateral, no accessory muscles used CVS: S1,S2,RRR GI: soft, non tender, non distended Neuro:? motor grossly intact, alert Psych: appropriate affect, appropriate insight? Objective Data Active Medications Acetaminophen (Acetaminophen 325 Mg Tablet) 650 mg PO Q6H PRN PRN Reason: Pain, Mild (Pain Scale 1-3) Last Admin: 09/07/21 09:02 Dose: 650 mg Documented by: AUGUST Cyanocobalamin (Cyanocobalamin (Vitamin B-12) 1,000 Mcg Tablet) 1,000 mcg PO DAILY [facility] Enoxaparin Sodium (Enoxaparin Sodium 40 Mg/0.4 Ml Syringe) 40 mg SUBCUT Q24H [facility] Last Admin: 09/06/21 19:56 Dose: 40 mg Documented by: KIET Famotidine (Famotidine 20 Mg Tablet) 20 mg PO BID [facility] Last Admin: 09/07/21 09:02 Dose: 20 mg Documented by: AUGUST Folic Acid (Folic Acid 1 Mg Tablet) 1 mg PO DAILY [facility] Stop: 09/09/21 08:59 Last Admin: 09/07/21 09:03 Dose: 1 mg Documented by: AUGUST Hydroxyzine HCl (Hydroxyzine Hcl 25 Mg Tablet) 25 mg PO Q6H PRN PRN Reason: Anxiety Last Admin: 09/06/21 14:23 Dose: 25 mg Documented by: AMILCAR Medication (No Benzodiazepines) 1 each MISCELLANE DAILY [facility] Melatonin (Melatonin 3 Mg Tablet) 6 mg PO BEDTIME PRN PRN Reason: Insomnia Last Admin: 09/06/21 19:57 Dose: 6 mg Documented by: KIET Multivitamins/Vitamin C (Multivitamin Tablet) 1 tab PO DAILY [facility] Stop: 09/09/21 08:59 Last Admin: 09/07/21 09:02 Dose: 1 tab Documented by: AUGUST Pharmacy Consult (Consult Rx Perform Med Rec) 1 each MISCELLANE ONCE PRN PRN Reason: Consult order Phenobarbital (Phenobarbital 15 Mg Tablet) 45 mg PO BID [facility]; Protocol Stop: 09/08/21 09:01 Last Admin: 09/07/21 09:03 Dose: 45 mg Documented by: AUGUST Phenobarbital (Phenobarbital 15 Mg Tablet) 15 mg PO BID [facility]; Protocol Stop: 09/10/21 09:01 Phenobarbital (Phenobarbital 15 Mg Tablet) 15 mg PO DAILY [facility]; Protocol Stop: 09/12/21 09:01 Senna (Sennosides 8.6 Mg Tablet) 17.2 mg PO BEDTIME PRN PRN Reason: Constipation Sodium Chloride (0.9 % Sodium Chloride Flush 3 Ml Syringe) 3 ml IVFLUSH QSHIFT [facility] Last Admin: 09/07/21 09:03 Dose: 3 ml Documented by: AUGUST Thiamine HCl (Thiamine Hcl 100 Mg Tablet) 100 mg PO DAILY [facility] Stop: 09/09/21 08:59 Last Admin: 09/07/21 09:03 Dose: 100 mg Documented by: AUGUST Labs CBC & Chem 7: 09/07/21 05:58 09/07/21 05:58 Labs: Laboratory Results - last 24 hr 09/07/21 09/07/21 09/07/21 05:58 05:58 05:58 MCV 100.8 H MCH 36.6 H MCHC 36.3 H RDW 11.9 Plt Count 243 D MPV 10.5 Absolute Nucleated RBC 0.000 Nucleated RBC % (auto) 0.0 PT 12.7 INR 1.1 Anion Gap Estim Creat Clear Calc Estimated GFR Fasting Glucose Calcium Total Bilirubin Direct Bilirubin AST ALT Alkaline Phosphatase Total Protein Albumin Vitamin B12 282 Folate 10.7 09/07/21 05:58 MCV MCH MCHC RDW Plt Count MPV Absolute Nucleated RBC Nucleated RBC % (auto) PT INR Anion Gap 15 Estim Creat Clear Calc 116.6 Estimated GFR > 60 Fasting Glucose 98 Calcium 8.1 L Total Bilirubin 1.0 Direct Bilirubin 0.5 AST 31 ALT 22 Alkaline Phosphatase 79 Total Protein 5.7 L Albumin 2.8 L Vitamin B12 Folate Microbiology Microbiology Results: Microbiology 09/05/21 17:17 Blood Culture - Final Blood - Venous Coag negative Staphylococcus 09/05/21 17:17 Blood Culture - Preliminary Blood - Venous No growth after 24 hours. Assessment and Plan (1) Alcohol withdrawal: Status: Acute Plan 56M presented with fall, found to be in alcohol withdrawal alcohol dependence with withdrawal phenobarb, monitor electrolytes and lfts ciwa hypokalemia replace and monitor ataxia due to alcohol and b12 deficiency b12 supplement pt alcoholic fatty liver alcohol cessation advised Quality Stroke Does the patient have a stroke diagnosis?: No VTE Prior VTE?: No VTE Risk Level:: Medical - moderate - high VTE Device Contraindication: Treatment Not Indicated VTE Drug Contraindication: N/A - Med Ordered
[2021-09-07] MEDS: Potassium Chloride ER 20 MEQ TAB.ER.PRT 40 MEQ PO (12:02)
[2021-09-07] MEDS: Cyanocobalamin (Vitamin B-12) 1,000 MCG TABLET 1000 MCG PO (12:03)
[2021-09-07 15:43] VITALS: BP 144/74; PULSE 98; RESP 18; TEMP 37.5; O2SAT 100
[2021-09-07 19:53] VITALS: BP 138/82; PULSE 115; RESP 18; TEMP 36.6; O2SAT 99
[2021-09-07] MEDS: Melatonin 3 MG TABLET 6 MG PO (20:11)
[2021-09-07] MEDS: Enoxaparin Sodium 40 MG/0.4 ML SYRINGE SUBCUT (20:11)
[2021-09-07] MEDS: Ibuprofen 400 MG TABLET PO (20:12)
[2021-09-08] VITALS: BP 126/85; PULSE 115; RESP 20; TEMP 36.9; O2SAT 98
[2021-09-08 03:54] VITALS: BP 150/81; PULSE 61; RESP 20; TEMP 36.6; O2SAT 94
[2021-09-08] MEDS: Ibuprofen 400 MG TABLET PO ×2 (04:29→21:14)
[2021-09-08] MEDS: hydrOXYzine HCL 25 MG TABLET PO ×2 (04:30→21:14)
[2021-09-08 07:18] LABS: Anion Gap 12 (12-20); Blood Urea Nitrogen 10 mg/dL (9-16); Calcium 8.1 mg/dL (8.4-10.2); Carbon Dioxide 26 mmol/L (22-29); Chloride 101 mmol/L (96-108); Creatinine Clr Calc Pharmacy 110.3; Estimated Glomerular Filt Rate > 60; Glucose Fasting 93 mg/dL (60-99); Potassium 3.3 mmol/L (3.3-5.1); Sodium 136 mmol/L (135-145)
[2021-09-08 07:19] LABS: Hematocrit 33.8 % (42.0-52.0); Mean Corpuscular HGB Conc 35.5 g/dl (31.0-36.0); Mean Corpuscular Hemoglobin 36.3 pg (27.0-33.0); Mean Corpuscular Volume 102.1 fL (80.0-98.0); Mean Platelet Volume 10.4 fL (9.4-12.4); Platelet Count 222 X10*3/uL (160-400); Red Blood Count 3.31 X10*6/uL (4.60-5.80); Red Cell Distribution Width 11.9 % (11.0-16.0); White Blood Count 8.2 X10*3/uL (4.8-10.8)
[2021-09-08 07:37] VITALS: BP 119/73; PULSE 94; RESP 18; TEMP 36.6; O2SAT 97
[2021-09-08] MEDS: Multivitamin TABLET 1 TAB PO (09:05)
[2021-09-08] MEDS: Famotidine 20 MG TABLET PO ×2 (09:05→21:14)
[2021-09-08] MEDS: Cyanocobalamin (Vitamin B-12) 1,000 MCG TABLET 1000 MCG PO (09:05)
[2021-09-08] MEDS: Thiamine HCL 100 MG TABLET PO (09:05)
[2021-09-08] MEDS: PHENobarbitaL 15 MG TABLET 45 MG PO (09:05)
[2021-09-08] MEDS: Folic Acid 1 MG TABLET PO (09:05)
[2021-09-08] MEDS: 0.9 % Sodium Chloride Flush 3 ML SYRINGE IVFLUSH ×3 (09:06→21:14)
[2021-09-08] MEDS: Potassium Chloride ER 20 MEQ TAB.ER.PRT 40 MEQ PO (10:02)
--- NOTE | 2021-09-08 10:38 | HO.PM.IMPN ---
Subjective Subjective Date of Service: 09/08/21 Interval History: cc: fall, withdrawal interval history: feeling stronger Cardiovascular Cardiovascular: Reports no additional cardiovascular complaints Respiratory Respiratory: Reports no additional respiratory complaints Physical Exam Vital Signs: Vital Signs: Last Vital Signs Temp 97.9 F 09/08/21 07:37 Pulse 94 09/08/21 07:37 Resp 18 09/08/21 07:37 BP 119/73 09/08/21 07:37 Pulse Ox 97 09/08/21 07:37 BMI result Body Mass Index 25.5 General: AO X 3, no acute distress, Resp:? CTA bilateral, no accessory muscles used CVS: S1,S2,RRR GI: soft, non tender, non distended Neuro:? motor grossly intact, alert Psych: appropriate affect, appropriate insight? Objective Data Active Medications Acetaminophen (Acetaminophen 325 Mg Tablet) 650 mg PO Q6H PRN PRN Reason: Pain, Mild (Pain Scale 1-3) Last Admin: 09/07/21 23:44 Dose: 650 mg Documented by: ATUL Cyanocobalamin (Cyanocobalamin (Vitamin B-12) 1,000 Mcg Tablet) 1,000 mcg PO DAILY [facility] Last Admin: 09/08/21 09:05 Dose: 1,000 mcg Documented by: CRISTY Enoxaparin Sodium (Enoxaparin Sodium 40 Mg/0.4 Ml Syringe) 40 mg SUBCUT Q24H [facility] Last Admin: 09/07/21 20:11 Dose: 40 mg Documented by: MORIAH Famotidine (Famotidine 20 Mg Tablet) 20 mg PO BID [facility] Last Admin: 09/08/21 09:05 Dose: 20 mg Documented by: CRISTY Folic Acid (Folic Acid 1 Mg Tablet) 1 mg PO DAILY [facility] Stop: 09/09/21 08:59 Last Admin: 09/08/21 09:05 Dose: 1 mg Documented by: CRISTY Hydroxyzine HCl (Hydroxyzine Hcl 25 Mg Tablet) 25 mg PO Q6H PRN PRN Reason: Anxiety Last Admin: 09/08/21 04:30 Dose: 25 mg Documented by: ATUL Ibuprofen (Ibuprofen 400 Mg Tablet) 400 mg PO Q6H PRN PRN Reason: mild pain Last Admin: 09/08/21 04:29 Dose: 400 mg Documented by: ATUL Medication (No Benzodiazepines) 1 each MISCELLANE DAILY [facility] Melatonin (Melatonin 3 Mg Tablet) 6 mg PO BEDTIME PRN PRN Reason: Insomnia Last Admin: 09/07/21 20:11 Dose: 6 mg Documented by: MORIAH Multivitamins/Vitamin C (Multivitamin Tablet) 1 tab PO DAILY [facility] Stop: 09/09/21 08:59 Last Admin: 09/08/21 09:05 Dose: 1 tab Documented by: CRISTY Pharmacy Consult (Consult Rx Perform Med Rec) 1 each MISCELLANE ONCE PRN PRN Reason: Consult order Phenobarbital (Phenobarbital 15 Mg Tablet) 15 mg PO BID [facility]; Protocol Stop: 09/10/21 09:01 Phenobarbital (Phenobarbital 15 Mg Tablet) 15 mg PO DAILY [facility]; Protocol Stop: 09/12/21 09:01 Senna (Sennosides 8.6 Mg Tablet) 17.2 mg PO BEDTIME PRN PRN Reason: Constipation Sodium Chloride (0.9 % Sodium Chloride Flush 3 Ml Syringe) 3 ml IVFLUSH QSHIFT [facility] Last Admin: 09/08/21 09:06 Dose: 3 ml Documented by: CRISTY Thiamine HCl (Thiamine Hcl 100 Mg Tablet) 100 mg PO DAILY [facility] Stop: 09/09/21 08:59 Last Admin: 09/08/21 09:05 Dose: 100 mg Documented by: CRISTY Labs CBC & Chem 7: 09/08/21 06:28 09/08/21 06:28 Labs: Laboratory Results - last 24 hr 09/08/21 09/08/21 06:28 06:28 MCV 102.1 H MCH 36.3 H MCHC 35.5 RDW 11.9 Plt Count 222 MPV 10.4 Absolute Nucleated RBC 0.000 Nucleated RBC % (auto) 0.0 Anion Gap 12 Estim Creat Clear Calc 110.3 Estimated GFR > 60 Fasting Glucose 93 Calcium 8.1 L Microbiology Microbiology Results: Microbiology 09/05/21 17:17 Blood Culture - Preliminary Blood - Venous No growth after 48 hours. 09/05/21 17:17 Blood Culture - Final Blood - Venous Coag negative Staphylococcus Assessment and Plan (1) Alcohol withdrawal: Status: Acute Plan 56M presented with fall, found to be in alcohol withdrawal alcohol dependence with withdrawal improing, continue phenobarb, monitor electrolytes and lfts ciwa hypokalemia replace and monitor ataxia due to alcohol and b12 deficiency b12 supplement pt reccomending rehab at [facility] alcoholic fatty liver alcohol cessation advised Quality Stroke Does the patient have a stroke diagnosis?: No VTE Prior VTE?: No VTE Risk Level:: Medical - moderate - high VTE Device Contraindication: Treatment Not Indicated VTE Drug Contraindication: N/A - Med Ordered
[2021-09-08 11:17] VITALS: BP 107/71; PULSE 84; RESP 18; TEMP 36.4; O2SAT 99
[2021-09-08 16:00] VITALS: BP 133/82; PULSE 86; TEMP 36.9; O2SAT 99
[2021-09-08] MEDS: Acetaminophen 325 MG TABLET 650 MG PO (16:47)
[2021-09-08 20:00] VITALS: BP 117/65; PULSE 87; TEMP 37.1; O2SAT 99
[2021-09-08] MEDS: Enoxaparin Sodium 40 MG/0.4 ML SYRINGE SUBCUT (21:13)
[2021-09-08] MEDS: PHENobarbitaL 15 MG TABLET PO (21:14)
[2021-09-08] MEDS: Melatonin 3 MG TABLET 6 MG PO (21:14)
[2021-09-09] VITALS: BP 136/86; PULSE 98; RESP 20; TEMP 36.3; O2SAT 99
[2021-09-09 04:00] VITALS: BP 143/86; PULSE 79; RESP 20; TEMP 36.1; O2SAT 100
[2021-09-09 07:32] LABS: Hematocrit 35.6 % (42.0-52.0); Hemoglobin 12.6 g/dl (14.0-18.0); Mean Corpuscular HGB Conc 35.4 g/dl (31.0-36.0); Mean Corpuscular Hemoglobin 36.6 pg (27.0-33.0); Mean Corpuscular Volume 103.5 fL (80.0-98.0); Mean Platelet Volume 11.3 fL (9.4-12.4); Platelet Count 223 X10*3/uL (160-400); Red Blood Count 3.44 X10*6/uL (4.60-5.80); Red Cell Distribution Width 12.1 % (11.0-16.0); White Blood Count 8.3 X10*3/uL (4.8-10.8)
[2021-09-09 07:51] LABS: Anion Gap 14 (12-20); Blood Urea Nitrogen 9 mg/dL (9-16); Calcium 8.2 mg/dL (8.4-10.2); Carbon Dioxide 23 mmol/L (22-29); Chloride 104 mmol/L (96-108); Creatinine Clr Calc Pharmacy 120.1; Estimated Glomerular Filt Rate > 60; Glucose Fasting 88 mg/dL (60-99); Potassium 3.6 mmol/L (3.3-5.1); Sodium 137 mmol/L (135-145)
[2021-09-09 08:00] VITALS: BP 124/73; PULSE 79; RESP 18; TEMP 36.9; O2SAT 100
[2021-09-09] MEDS: PHENobarbitaL 15 MG TABLET PO ×2 (08:55→20:26)
[2021-09-09] MEDS: Famotidine 20 MG TABLET PO ×2 (08:56→20:26)
[2021-09-09] MEDS: Cyanocobalamin (Vitamin B-12) 1,000 MCG TABLET 1000 MCG PO (08:56)
[2021-09-09] MEDS: 0.9 % Sodium Chloride Flush 3 ML SYRINGE IVFLUSH ×2 (08:56→20:30)
--- NOTE | 2021-09-09 09:18 | P.PNIM_ITS ---
Subjective Subjective Date of Service: 09/09/21 Interval History: cc: falls interval history: feeling better Cardiovascular Cardiovascular: Reports no additional cardiovascular complaints Respiratory Respiratory: Reports no additional respiratory complaints Physical Exam Verdana 4l Vital Signs: Verdana 4d Verdana 4d Vital Signs: Verdana 4d Verdana 4Bd Last Vital Signs Verdana 4d Mail Handler New 4d Mail Handler New 4d Temp 98.5 F 09/09/21 08:00 Mail Handler New 4d Pulse 79 09/09/21 08:00 Mail Handler New 4d Resp 18 09/09/21 08:00 BP 124/73 09/09/21 08:00 Pulse Ox 100 09/09/21 08:00 BMI result Body Mass Index 25.5 General: AO X 3, no acute distress, Resp:? CTA bilateral, no accessory muscles used CVS: S1,S2,RRR GI: soft, non tender, non distended Neuro:? motor grossly intact, alert Psych: appropriate affect, appropriate insight? ext: bilateral upper extremity ulnar deviation, with left hand 2nd and 3rd MCP swelling left knee swelling, left hallux ertyhema swelling Objective Data Active Medications Acetaminophen (Acetaminophen 325 Mg Tablet) 650 mg PO Q6H PRN PRN Reason: Pain, Mild (Pain Scale 1-3) Last Admin: 09/08/21 16:47 Dose: 650 mg Documented by: CRISTY Cyanocobalamin (Cyanocobalamin (Vitamin B-12) 1,000 Mcg Tablet) 1,000 mcg PO DAILY [facility] Last Admin: 09/09/21 08:56 Dose: 1,000 mcg Documented by: CRISTY Enoxaparin Sodium (Enoxaparin Sodium 40 Mg/0.4 Ml Syringe) 40 mg SUBCUT Q24H [facility] Last Admin: 09/08/21 21:13 Dose: 40 mg Documented by: ATUL Famotidine (Famotidine 20 Mg Tablet) 20 mg PO BID [facility] Last Admin: 09/09/21 08:56 Dose: 20 mg Documented by: CRISTY Hydroxyzine HCl (Hydroxyzine Hcl 25 Mg Tablet) 25 mg PO Q6H PRN PRN Reason: Anxiety Last Admin: 09/08/21 21:14 Dose: 25 mg Documented by: ATUL Ibuprofen (Ibuprofen 400 Mg Tablet) 400 mg PO Q6H PRN PRN Reason: mild pain Last Admin: 09/08/21 21:14 Dose: 400 mg Documented by: ATUL Medication (No Benzodiazepines) 1 each MISCELLANE DAILY [facility] Melatonin (Melatonin 3 Mg Tablet) 6 mg PO BEDTIME PRN PRN Reason: Insomnia Last Admin: 09/08/21 21:14 Dose: 6 mg Documented by: ATUL Pharmacy Consult (Consult Rx Perform Med Rec) 1 each MISCELLANE ONCE PRN PRN Reason: Consult order Phenobarbital (Phenobarbital 15 Mg Tablet) 15 mg PO BID [facility]; Protocol Stop: 09/10/21 09:01 Last Admin: 09/09/21 08:55 Dose: 15 mg Documented by: CRISTY Phenobarbital (Phenobarbital 15 Mg Tablet) 15 mg PO DAILY [facility]; Protocol Stop: 09/12/21 09:01 Senna (Sennosides 8.6 Mg Tablet) 17.2 mg PO BEDTIME PRN PRN Reason: Constipation Sodium Chloride (0.9 % Sodium Chloride Flush 3 Ml Syringe) 3 ml IVFLUSH QSHIFT [facility] Last Admin: 09/09/21 08:56 Dose: 3 ml Documented by: CRISTY Labs CBC & Chem 7: 09/09/21 07:05 09/09/21 07:05 Labs: Laboratory Results - last 24 hr 09/09/21 09/09/21 07:05 07:05 MCV 103.5 H MCH 36.6 H MCHC 35.4 RDW 12.1 Plt Count 223 MPV 11.3 Absolute Nucleated RBC 0.000 Nucleated RBC % (auto) 0.0 Anion Gap 14 Estim Creat Clear Calc 120.1 Estimated GFR > 60 Fasting Glucose 88 Calcium 8.2 L Assessment and Plan (1) Alcohol withdrawal: Status: Acute Plan 56M presented with fall, found to be in alcohol withdrawal alcohol dependence with withdrawal improving, continue phenobarb, monitor electrolytes ciwa hypokalemia replace, monitor ulnar deviation concern for inflammatory arthritis check RF, anti ccp, [place] ataxia due to alcohol and b12 deficiency b12 supplement pt reccomending rehab at [facility] alcoholic fatty liver alcohol cessation advised Quality Stroke Does the patient have a stroke diagnosis?: No VTE Prior VTE?: No VTE Risk Level:: Medical - moderate - high VTE Device Contraindication: Treatment Not Indicated VTE Drug Contraindication: N/A - Med Ordered
[2021-09-09] MEDS: Acetaminophen 325 MG TABLET 650 MG PO (09:34)
[2021-09-09 11:06] VITALS: BP 126/75; PULSE 82; RESP 18; TEMP 37; O2SAT 99
[2021-09-09 15:07] VITALS: BP 140/81; PULSE 85; RESP 18; TEMP 36.2; O2SAT 98
[2021-09-09 19:19] VITALS: BP 132/89; PULSE 91; RESP 18; TEMP 36.6; O2SAT 99
[2021-09-09] MEDS: Ibuprofen 400 MG TABLET PO (20:26)
[2021-09-09] MEDS: hydrOXYzine HCL 25 MG TABLET PO (20:27)
[2021-09-09] MEDS: Enoxaparin Sodium 40 MG/0.4 ML SYRINGE SUBCUT (20:28)
[2021-09-09] MEDS: Melatonin 3 MG TABLET 6 MG PO (21:36)
[2021-09-10 00:38] VITALS: BP 121/68; PULSE 77; RESP 18; TEMP 36.4; O2SAT 97
[2021-09-10 06:20] LABS: Hematocrit 35.4 % (42.0-52.0); Hemoglobin 12.3 g/dl (14.0-18.0); Mean Corpuscular HGB Conc 34.7 g/dl (31.0-36.0); Mean Corpuscular Volume 103.5 fL (80.0-98.0); Platelet Count 312 X10*3/uL (160-400); Red Blood Count 3.42 X10*6/uL (4.60-5.80); Red Cell Distribution Width 12.1 % (11.0-16.0); White Blood Count 8.3 X10*3/uL (4.8-10.8)
[2021-09-10 06:53] LABS: Anion Gap 12 (12-20); Blood Urea Nitrogen 10 mg/dL (9-16); Calcium 8.6 mg/dL (8.4-10.2); Carbon Dioxide 27 mmol/L (22-29); Chloride 102 mmol/L (96-108); Creatinine Clr Calc Pharmacy 113.4; Estimated Glomerular Filt Rate > 60; Glucose Fasting 81 mg/dL (60-99); Potassium 4.4 mmol/L (3.3-5.1); Sodium 137 mmol/L (135-145)
[2021-09-10 06:54] LABS: Rheumatoid Factor < 15.0 IU/mL (<15.0)
[2021-09-10 07:40] VITALS: BP 136/86; PULSE 88; RESP 20; TEMP 36.2; O2SAT 100
[2021-09-10] MEDS: 0.9 % Sodium Chloride Flush 3 ML SYRINGE IVFLUSH (07:53)
[2021-09-10] MEDS: Famotidine 20 MG TABLET PO (07:54)
[2021-09-10] MEDS: PHENobarbitaL 15 MG TABLET PO (07:54)
[2021-09-10] MEDS: Cyanocobalamin (Vitamin B-12) 1,000 MCG TABLET 1000 MCG PO (07:54)
--- NOTE | 2021-09-10 09:15 | P.PNIM_ITS ---
Subjective Subjective Date of Service: 09/10/21 Interval History: cc: falls interval history: feeling better Cardiovascular Cardiovascular: Reports no additional cardiovascular complaints Gastrointestinal Gastrointestinal: Reports no additional gastrointestinal complaints Physical Exam Verdana 4l Vital Signs: Verdana 4d Verdana 4d Vital Signs: Verdana 4d Verdana 4Bd Last Vital Signs Verdana 4d Porcelain Turner New 4d Porcelain Turner New 4d Temp 97.1 F 09/10/21 07:40 Porcelain Turner New 4d Pulse 88 09/10/21 07:40 Porcelain Turner New 4d Resp 20 09/10/21 07:40 BP 136/86 09/10/21 07:40 Pulse Ox 100 09/10/21 07:40 BMI result Body Mass Index 25.5 General: AO X 3, no acute distress, Resp:? CTA bilateral, no accessory muscles used CVS: S1,S2,RRR GI: soft, non tender, non distended Neuro:? motor grossly intact, alert Psych: appropriate affect, appropriate insight? ext: bilateral upper extremity ulnar deviation, with left hand 2nd and 3rd MCP swelling left knee swelling, left hallux ertyhema swelling Objective Data Active Medications Acetaminophen (Acetaminophen 325 Mg Tablet) 650 mg PO Q6H PRN PRN Reason: Pain, Mild (Pain Scale 1-3) Last Admin: 09/09/21 09:34 Dose: 650 mg Documented by: CRISTY Cyanocobalamin (Cyanocobalamin (Vitamin B-12) 1,000 Mcg Tablet) 1,000 mcg PO DAILY [facility] Last Admin: 09/10/21 07:54 Dose: 1,000 mcg Documented by: SEVERO Enoxaparin Sodium (Enoxaparin Sodium 40 Mg/0.4 Ml Syringe) 40 mg SUBCUT Q24H [facility] Last Admin: 09/09/21 20:28 Dose: 40 mg Documented by: CRISTY Famotidine (Famotidine 20 Mg Tablet) 20 mg PO BID [facility] Last Admin: 09/10/21 07:54 Dose: 20 mg Documented by: SEVERO Hydroxyzine HCl (Hydroxyzine Hcl 25 Mg Tablet) 25 mg PO Q6H PRN PRN Reason: Anxiety Last Admin: 09/09/21 20:27 Dose: 25 mg Documented by: CRISTY Ibuprofen (Ibuprofen 400 Mg Tablet) 400 mg PO Q6H PRN PRN Reason: mild pain Last Admin: 09/09/21 20:26 Dose: 400 mg Documented by: CRISTY Medication (No Benzodiazepines) 1 each MISCELLANE DAILY [facility] Melatonin (Melatonin 3 Mg Tablet) 6 mg PO BEDTIME PRN PRN Reason: Insomnia Last Admin: 09/09/21 21:36 Dose: 6 mg Documented by: CRISTY Pharmacy Consult (Consult Rx Perform Med Rec) 1 each MISCELLANE ONCE PRN PRN Reason: Consult order Phenobarbital (Phenobarbital 15 Mg Tablet) 15 mg PO DAILY [facility]; Protocol Stop: 09/12/21 09:01 Senna (Sennosides 8.6 Mg Tablet) 17.2 mg PO BEDTIME PRN PRN Reason: Constipation Sodium Chloride (0.9 % Sodium Chloride Flush 3 Ml Syringe) 3 ml IVFLUSH QSHIFT [facility] Last Admin: 09/10/21 07:53 Dose: 3 ml Documented by: SEVERO Labs CBC & Chem 7: 09/10/21 05:56 09/10/21 05:56 Labs: Laboratory Results - last 24 hr 09/10/21 09/10/21 09/10/21 05:56 05:56 05:56 MCV 103.5 H MCH 36.0 H MCHC 34.7 RDW 12.1 Plt Count 312 D MPV 10.0 Absolute Nucleated RBC 0.000 Nucleated RBC % (auto) 0.0 Anion Gap 12 Estim Creat Clear Calc 113.4 Estimated GFR > 60 Fasting Glucose 81 Calcium 8.6 Rheumatoid Factor < 15.0 Assessment and Plan (1) Alcohol withdrawal: Status: Acute Plan 56M presented with fall, found to be in alcohol withdrawal alcohol dependence with withdrawal resolved hypokalemia replace, monitor ulnar deviation concern for inflammatory arthritis follow up RF, anti ccp, beverley ataxia due to alcohol and b12 deficiency b12 supplement pt reccomending rehab at [facility] alcoholic fatty liver alcohol cessation advised dispo - awaiting placement Quality Stroke Does the patient have a stroke diagnosis?: No VTE Prior VTE?: No VTE Risk Level:: Medical - moderate - high VTE Device Contraindication: Treatment Not Indicated VTE Drug Contraindication: N/A - Med Ordered
[2021-09-10 10:33] VITALS: BP 136/86; PULSE 88; O2SAT 100
[2021-09-10] MEDS: Acetaminophen 325 MG TABLET 650 MG PO (11:11)
[2021-09-10 11:22] VITALS: BP 118/78; PULSE 92; RESP 20; TEMP 36.6; O2SAT 100
[2021-09-10 14:26] LABS: COVID-19 Test Negative (Negative); IDNOW Serial# 9DD0AD1C
--- NOTE | 2021-09-10 15:38 | PM.DS ---
DS: Providers Provider Date of Service: 09/10/21 Date of admission: 09/05/21 20:02 Primary care physician: Barrington Diaz MD DS: Diagnosis Discharge Diagnosis (1) Alcohol withdrawal: Status: Acute DS: Summary Hospital Course Hospital Course: patient was admitted for alcohol dependence with withdrawal and delerium. he was treated with phenobarbital and symptoms resolved. patient was noted to have macrocytosis and neuropathy, b12 was borderline low, likely b12 defeciency and ETOH neuropathy, b12 supplement started. patient is singificantly ataxic due to his neuropathy, recommended for STR at SNF, he is expected to require less than 30 days. patient also noted to have arthritis with ulnar deviation, RF was negative, JOSÉ and anticcp pending, these should be followed up and should consider rheumatology follow up. Time Spent with Patient Time attestation: Total time spent providing and/or coordinating discharge services: Discharge coordination time: Greater than 30 minutes Quality: Stroke Does the patient have a stroke diagnosis?: No Physical Exam Vital Signs: Vital Signs: Last Vital Signs Temp 97.9 F 09/10/21 11:22 Pulse 92 09/10/21 11:22 Resp 20 09/10/21 11:22 BP 118/78 09/10/21 11:22 Pulse Ox 100 09/10/21 11:22 BMI result Body Mass Index 25.5 General: AO X 3, no acute distress, Resp:? CTA bilateral, no accessory muscles used CVS: S1,S2,RRR GI: soft, non tender, non distended Neuro:? motor grossly intact, alert Psych: appropriate affect, appropriate insight? ext: bilateral upper extremity ulnar deviation, with left hand 2nd and 3rd MCP swelling left knee swelling, left hallux ertyhema swelling DS: Data Data Completed and Pending Labs on day of discharge: Laboratory Results - last 24 hr 09/10/21 09/10/21 09/10/21 05:56 05:56 05:56 WBC 8.3 RBC 3.42 L Hgb 12.3 L Hct 35.4 L MCV 103.5 H MCH 36.0 H MCHC 34.7 RDW 12.1 Plt Count 312 D MPV 10.0 Absolute Nucleated RBC 0.000 Nucleated RBC % (auto) 0.0 Sodium 137 Potassium 4.4 D Chloride 102 Carbon Dioxide 27 Anion Gap 12 BUN 10 Creatinine 0.71 Estim Creat Clear Calc 113.4 Estimated GFR > 60 Fasting Glucose 81 Calcium 8.6 Rheumatoid Factor < 15.0 COVID-19 (THEO) COVID-19 Clin Com 09/10/21 13:53 WBC RBC Hgb Hct MCV MCH MCHC RDW Plt Count MPV Absolute Nucleated RBC Nucleated RBC % (auto) Sodium Potassium Chloride Carbon Dioxide Anion Gap BUN Creatinine Estim Creat Clear Calc Estimated GFR Fasting Glucose Calcium Rheumatoid Factor COVID-19 (THEO) Negative COVID-19 Clin Com See Note Preliminary micro results at discharge 09/05/21 17:17 Blood Culture - Preliminary Blood - Venous No growth after 48 hours. Discharge Plan Discharge Patient Disposition: Xfer SNF Discharge Diagnosis: etoh withdrawal Referrals: Barrington Diaz MD [Primary Care Provider] - 1 Week Discharge Medications: New cyanocobalamin (vitamin B-12) [Vitamin B-12] 1,000 mcg Tablet 1,000 mcg PO DAILY Qty: 0 0RF Continued multivitamin Tablet 1 tab PO DAILY 0RF cholecalciferol (vitamin D3) 25 mcg (1,000 unit) Tablet 25 mcg PO DAILY 0RF Discharge Orders: Discharge Order (Routine); Ordered 09/10/21 Ordered By: Arun Quesada Diet: advance to usual diet Activity on Discharge: As tolerated Stand Alone Forms: Patient Portal Discharge page Care Plan Goals: recovery Health Concerns: etoh dependence, withdrawal, b12 defeciency, neuropathy, arthritis with ulnar deviation Plan of Treatment: stop etoh, b12 supplement, rehab, follow up inflammatory arthritis labs done at hospital, consider rheumatology eval Assessment: see above
[2021-09-10 15:41] VITALS: BP 126/78; PULSE 89; RESP 18; TEMP 36.5; O2SAT 98
--- NOTE | 2021-09-10 15:47 | MHC.CM.PN ---
pt dcd today to [facility] pt and aware bls booked
[2021-09-10] MEDS: Ibuprofen 400 MG TABLET PO (16:29)
[2021-09-13 12:51] LABS: Anti Nuclear Antibody Screen NEGATIVE (NEGATIVE)
[2021-09-13 15:51] LABS: Cyclic Citrullinated Peptide <16 UNITS
== END 2021-09-10 18:28 | disposition skilled nursing facility (03) | DRG 775 ==
LOC: HO.ED 18:22 → HO.EDOVER 20:08 → HO.IMC 09-06 02:56
PROVIDERS: Admitting Provider Hospitalist; Emergency Provider Emergency Medicine; PCP Internal Medicine; Visit Provider Internal Medicine
DX: F10.231 Alcohol dependence with withdrawal delirium (principal); G62.1 Alcoholic polyneuropathy; E53.8 Deficiency of other specified B group vitamins; K70.0 Alcoholic fatty liver; R29.6 Repeated falls; M06.4 Inflammatory polyarthropathy; D75.89 Other specified diseases of blood and blood-forming organs; Z91.81 History of falling; E87.6 Hypokalemia; F17.210 Nicotine dependence, cigarettes, uncomplicated; Z71.6 Tobacco abuse counseling; Z20.822 Contact with and (suspected) exposure to COVID-19; Z86.16 Personal history of COVID-19; Z79.899 Other long term (current) drug therapy
CPT/HCPCS: 36415; 71045; 71275; 73562; 73660; 80048; 80053; 80076; 81003; 82607; 82746; 83605; 83880; 84443; 84484; 85025; 85027; 85379; 85610; 86038; 86039; 86200; 86431; 87040; 87147; 87205; 87635; 93005; 96361; 96365; 96372; 96375; 97110; 97116; 97163; 99282; 99285; 99291; J1650; J2060; J2560; J3411; Q9967

== ENCOUNTER 2021-09-25 14:07 | Outpatient (REF) | payer BC, SELFPAY ==
--- NOTE | ~2021-09-25 | XR_ITS ---
EXAMINATION: XR KNEES, STANDING AP XR KNEE, LEFT XR KNEE, RIGHT. CLINICAL INFORMATION: Knee pain. COMPARISON: Radiographs left knee 09/05/2021 TECHNIQUE: Standing AP view of both knees is performed. Additional lateral and axial patella views are also obtained on each side. FINDINGS: Right: No fracture, dislocation, destructive process, or periostitis. There is mild narrowing lateral knee joint compartment without erosive change or definite chondrocalcinosis. Axial view patella shows no lateralization or tilting. Lateral view shows moderate suprapatellar effusion. Hoffa's fat pad appears normal. Left: No fracture, dislocation, destructive process or periostitis. No definite joint narrowing or erosive change or chondrocalcinosis. There is trace suprapatellar effusion. Hoffa's fat pad appears normal. Axial view patella shows no lateralization or tilting. XR/XR knee standing BI IMPRESSION: Right: -Moderate suprapatellar effusion. -Borderline narrowing lateral compartment. No erosive change. -No destructive process or periostitis. Left: -Small suprapatellar effusion. -No focal joint narrowing or erosive change. -No destructive process or periostitis.
--- NOTE | ~2021-09-25 | XR_ITS ---
EXAMINATION: XR ANKLE, LEFT CLINICAL INFORMATION: M25.579 - Pain in ankle and joints COMPARISON: Radiographs left ankle 09/19/2015 TECHNIQUE: AP, lateral, and mortise views of the left ankle. FINDINGS: Imaging is obtained with foot exaggerated plantar flexed. The AP view is obliqued. There is no visible acute fracture or dislocation. The malleoli appear intact and the ankle mortise is grossly symmetric. There may be some fine chondrocalcinosis distal tibial articular surface. No erosive change. There is mild dorsal spurring distal talus again seen. XR/XR ankle LT min 3V IMPRESSION: 1. No visible fracture or destructive process. 2. Suspect fine chondrocalcinosis distal tibial articular cartilage. No erosive change.
--- NOTE | ~2021-09-25 | XR_ITS ---
EXAMINATION: XR KNEES, STANDING AP XR KNEE, LEFT XR KNEE, RIGHT. CLINICAL INFORMATION: Knee pain. COMPARISON: Radiographs left knee 09/05/2021 TECHNIQUE: Standing AP view of both knees is performed. Additional lateral and axial patella views are also obtained on each side. FINDINGS: Right: No fracture, dislocation, destructive process, or periostitis. There is mild narrowing lateral knee joint compartment without erosive change or definite chondrocalcinosis. Axial view patella shows no lateralization or tilting. Lateral view shows moderate suprapatellar effusion. Hoffa's fat pad appears normal. Left: No fracture, dislocation, destructive process or periostitis. No definite joint narrowing or erosive change or chondrocalcinosis. There is trace suprapatellar effusion. Hoffa's fat pad appears normal. Axial view patella shows no lateralization or tilting. XR/XR knee RT 2V IMPRESSION: Right: -Moderate suprapatellar effusion. -Borderline narrowing lateral compartment. No erosive change. -No destructive process or periostitis. Left: -Small suprapatellar effusion. -No focal joint narrowing or erosive change. -No destructive process or periostitis.
--- NOTE | ~2021-09-25 | XR_ITS ---
EXAMINATION: XR KNEES, STANDING AP XR KNEE, LEFT XR KNEE, RIGHT. CLINICAL INFORMATION: Knee pain. COMPARISON: Radiographs left knee 09/05/2021 TECHNIQUE: Standing AP view of both knees is performed. Additional lateral and axial patella views are also obtained on each side. FINDINGS: Right: No fracture, dislocation, destructive process, or periostitis. There is mild narrowing lateral knee joint compartment without erosive change or definite chondrocalcinosis. Axial view patella shows no lateralization or tilting. Lateral view shows moderate suprapatellar effusion. Hoffa's fat pad appears normal. Left: No fracture, dislocation, destructive process or periostitis. No definite joint narrowing or erosive change or chondrocalcinosis. There is trace suprapatellar effusion. Hoffa's fat pad appears normal. Axial view patella shows no lateralization or tilting. XR/XR knee LT 2V IMPRESSION: Right: -Moderate suprapatellar effusion. -Borderline narrowing lateral compartment. No erosive change. -No destructive process or periostitis. Left: -Small suprapatellar effusion. -No focal joint narrowing or erosive change. -No destructive process or periostitis.
== END 2021-09-25 14:08 | disposition home or self-care (01) ==
LOC: HO.HOSX 14:07
PROVIDERS: PCP Internal Medicine; Visit Provider Physician Assistant
DX: S80.02XA Contusion of left knee, initial encounter (principal); S80.01XA Contusion of right knee, initial encounter; S93.402A Sprain of unspecified ligament of left ankle, initial encounter; B35.1 Tinea unguium
CPT/HCPCS: 73560; 73565; 73610

== ENCOUNTER 2021-10-22 16:27 | Outpatient (REF) | payer BC, SELFPAY ==
[2021-10-22 16:39] LABS: MANUAL DIFF FLAG NO
[2021-10-22 17:26] LABS: Basophils Percent Auto 0.4 % (0-2); Eosinophils Absolute Auto 0.3 X10*3/uL (0.0-0.4); Eosinophils Percent Auto 2.7 % (0-4); Hematocrit 35.2 % (42.0-52.0); Hemoglobin 11.4 g/dl (14.0-18.0); Imm Gran Abs Auto 0.05 X10*3/uL (0.00-0.03); Imm Gran Pct Auto 0.5 % (0.0-0.4); Lymphocytes Absolute Auto 2.7 X10*3/uL (1.2-4.9); Lymphocytes Percent Auto 24.6 % (20-40); Mean Corpuscular HGB Conc 32.4 g/dl (31.0-36.0); Mean Corpuscular Hemoglobin 31.9 pg (27.0-33.0); Mean Corpuscular Volume 98.6 fL (80.0-98.0); Mean Platelet Volume 10.9 fL (9.4-12.4); Monocytes Absolute Auto 0.8 X10*3/uL (0.1-1.2); Monocytes Percent Auto 7.1 % (2-11); Neutrophils Absolute Auto 7.1 x10*3/uL (2.0-8.3); Neutrophils Percent Auto 64.7 % (45-73); Platelet Count 373 X10*3/uL (160-400); Red Blood Count 3.57 X10*6/uL (4.60-5.80); Red Cell Distribution Width 12.3 % (11.0-16.0)
[2021-10-22 18:18] LABS: Alanine Aminotransferase 12 U/L (0-40); Alkaline Phosphatase 70 U/L (39-117); Anion Gap 16 (12-20); Aspartate Amino Transferase 13 U/L (5-37); Bilirubin Total 0.5 mg/dL (0.0-1.0); Blood Urea Nitrogen 36 mg/dL (9-16); C Reactive Protein 3.63 mg/dL (< or = 0.50); Calcium 10.2 mg/dL (8.4-10.2); Carbon Dioxide 25 mmol/L (22-29); Chloride 106 mmol/L (96-108); Cholesterol 184 mg/dL; Estimated Glomerular Filt Rate 59; Glucose Random 92 mg/dL (60-115); Iron 37 mcg/dL (45-160); Percent Iron Saturation 12 % (15-50); Potassium 4.8 mmol/L (3.3-5.1); Sodium 142 mmol/L (135-145); Total Iron Binding Capacity 317 mcg/dL (228-428); Total Protein 7.1 g/dL (6.5-8.0); Unsaturated Iron Binding 280 ug/dL
[2021-10-22 18:35] LABS: Uric Acid 8.5 mg/dL (3.4-7.0)
[2021-10-22 18:45] LABS: Vitamin D 25-OH Total 32.8 ng/mL (>30)
[2021-10-22 19:03] LABS: Prostate Specific Antigen 0.83 ng/mL (<0.05-4.0)
== END 2021-10-22 16:28 | disposition home or self-care (01) ==
LOC: HO.LAB 16:27
PROVIDERS: PCP Internal Medicine; Visit Provider Internal Medicine
DX: Z12.5 Encounter for screening for malignant neoplasm of prostate (principal); E55.9 Vitamin D deficiency, unspecified; R79.89 Other specified abnormal findings of blood chemistry; M10.9 Gout, unspecified
CPT/HCPCS: 36415; 80053; 82306; 82465; 83540; 84153; 84550; 85025; 86140

== ENCOUNTER 2021-11-06 13:23 | Outpatient (REF) | payer BC, SELFPAY ==
--- NOTE | ~2021-11-06 | XR_ITS ---
EXAMINATION: XR FOOT, LEFT CLINICAL INFORMATION: Fracture COMPARISON: Previous x-ray September 2021 TECHNIQUE: AP, lateral, and oblique views of the left foot. FINDINGS: There is hallux valgus deformity and degenerative change at the first MTP joint. There is still lucency at the medial and lateral aspect of the base of the distal phalanx intra-articular with the IP joint questionable for nondisplaced fracture. This is similar to previous exam. There are degenerative changes of the midfoot. Soft tissues are unremarkable. XR/XR foot LT min 3V IMPRESSION: Stable appearance to probable nondisplaced fractures of the base of the distal phalanx of the great toe intra-articular with the IP joint. Hallux valgus deformity and arthritis at the first MTP joint.
== END 2021-11-06 13:24 | disposition home or self-care (01) ==
LOC: HO.HOSX 13:23
PROVIDERS: PCP Internal Medicine; Visit Provider Physician Assistant
DX: S93.402D Sprain of unspecified ligament of left ankle, subsequent encounter (principal); B35.1 Tinea unguium; S92.402D Displaced unspecified fracture of left great toe, subsequent encounter for fracture with routine healing
CPT/HCPCS: 73630

== ENCOUNTER 2022-01-16 06:15 | Outpatient (REF) | payer BC, SELFPAY ==
[2022-01-16 06:36] LABS: MANUAL DIFF FLAG NO
[2022-01-16 07:13] LABS: Basophils Percent Auto 0.7 % (0-2); Eosinophils Absolute Auto 0.1 X10*3/uL (0.0-0.4); Eosinophils Percent Auto 2.3 % (0-4); Hematocrit 45.5 % (42.0-52.0); Hemoglobin 15.1 g/dl (14.0-18.0); Imm Gran Abs Auto 0.02 X10*3/uL (0.00-0.03); Imm Gran Pct Auto 0.3 % (0.0-0.4); Lymphocytes Absolute Auto 1.9 X10*3/uL (1.2-4.9); Lymphocytes Percent Auto 31.1 % (20-40); Mean Corpuscular HGB Conc 33.2 g/dl (31.0-36.0); Mean Corpuscular Hemoglobin 31.3 pg (27.0-33.0); Mean Corpuscular Volume 94.2 fL (80.0-98.0); Mean Platelet Volume 10.8 fL (9.4-12.4); Monocytes Absolute Auto 0.5 X10*3/uL (0.1-1.2); Monocytes Percent Auto 8.1 % (2-11); Neutrophils Absolute Auto 3.5 x10*3/uL (2.0-8.3); Neutrophils Percent Auto 57.5 % (45-73); Platelet Count 227 X10*3/uL (160-400); Red Blood Count 4.83 X10*6/uL (4.60-5.80); Red Cell Distribution Width 13.6 % (11.0-16.0)
[2022-01-16 07:51] LABS: Alanine Aminotransferase 10 U/L (0-40); Albumin Level 3.7 g/dL (3.5-5.0); Alkaline Phosphatase 82 U/L (39-117); Anion Gap 13 (12-20); Aspartate Amino Transferase 13 U/L (5-37); Bilirubin Total 0.5 mg/dL (0.0-1.0); Blood Urea Nitrogen 20 mg/dL (9-16); Calcium 9.6 mg/dL (8.4-10.2); Carbon Dioxide 29 mmol/L (22-29); Chloride 106 mmol/L (96-108); Estimated Glomerular Filt Rate > 60; Glucose Random 95 mg/dL (60-115); Iron 39 mcg/dL (45-160); Percent Iron Saturation 13 % (15-50); Sodium 143 mmol/L (135-145); Total Iron Binding Capacity 312 mcg/dL (228-428); Total Protein 6.8 g/dL (6.5-8.0); Unsaturated Iron Binding 273 ug/dL
== END 2022-01-16 06:16 | disposition home or self-care (01) ==
LOC: HO.LAB 06:15
PROVIDERS: PCP Internal Medicine; Visit Provider Internal Medicine
DX: D64.9 Anemia, unspecified (principal); R73.03 Prediabetes; G62.9 Polyneuropathy, unspecified
CPT/HCPCS: 36415; 80053; 83540; 85025

== ENCOUNTER 2022-05-21 05:59 | Outpatient (REF) | payer BC, SELFPAY ==
[2022-05-21 06:09] LABS: MANUAL DIFF FLAG NO
[2022-05-21 07:29] LABS: Basophils Percent Auto 0.3 % (0-2); Eosinophils Percent Auto 0.1 % (0-4); Hematocrit 49.2 % (42.0-52.0); Hemoglobin 16.6 g/dl (14.0-18.0); Imm Gran Abs Auto 0.04 X10*3/uL (0.00-0.03); Imm Gran Pct Auto 0.4 % (0.0-0.4); Lymphocytes Absolute Auto 1.8 X10*3/uL (1.2-4.9); Lymphocytes Percent Auto 19.8 % (20-40); Mean Corpuscular HGB Conc 33.7 g/dl (31.0-36.0); Mean Corpuscular Hemoglobin 32.4 pg (27.0-33.0); Mean Corpuscular Volume 95.9 fL (80.0-98.0); Mean Platelet Volume 10.5 fL (9.4-12.4); Monocytes Absolute Auto 0.6 X10*3/uL (0.1-1.2); Monocytes Percent Auto 6.9 % (2-11); Neutrophils Absolute Auto 6.6 x10*3/uL (2.0-8.3); Neutrophils Percent Auto 72.5 % (45-73); Platelet Count 268 X10*3/uL (160-400); Red Blood Count 5.13 X10*6/uL (4.60-5.80); Red Cell Distribution Width 12.8 % (11.0-16.0); White Blood Count 9.2 X10*3/uL (4.8-10.8)
[2022-05-21 08:26] LABS: Alanine Aminotransferase 17 U/L (0-40); Albumin Level 3.9 g/dL (3.5-5.0); Alkaline Phosphatase 109 U/L (39-117); Anion Gap 21 (12-20); Aspartate Amino Transferase 14 U/L (5-37); Bilirubin Total 1.5 mg/dL (0.0-1.0); Blood Urea Nitrogen 13 mg/dL (9-16); Calcium 9.4 mg/dL (8.4-10.2); Carbon Dioxide 25 mmol/L (22-29); Chloride 101 mmol/L (96-108); Estimated Glomerular Filt Rate > 60; Glucose Random 88 mg/dL (60-115); Potassium 4.5 mmol/L (3.3-5.1); Sodium 142 mmol/L (135-145); Total Protein 7.4 g/dL (6.5-8.0); Uric Acid 9.9 mg/dL (3.4-7.0)
== END 2022-05-21 06:00 | disposition home or self-care (01) ==
LOC: HO.LAB 05:59
PROVIDERS: PCP Internal Medicine; Visit Provider Internal Medicine
DX: I10 Essential (primary) hypertension (principal); M10.9 Gout, unspecified
CPT/HCPCS: 36415; 80053; 84550; 85025

== ENCOUNTER 2022-10-30 06:01 | Outpatient (REF) | payer BC, SELFPAY ==
[2022-10-30 08:30] LABS: Alanine Aminotransferase 34 U/L (0-40); Albumin Level 3.6 g/dL (3.5-5.0); Alkaline Phosphatase 105 U/L (39-117); Anion Gap 15 (12-20); Aspartate Amino Transferase 24 U/L (5-37); Bilirubin Total 1.3 mg/dL (0.0-1.0); Blood Urea Nitrogen 10 mg/dL (9-16); Calcium 9.1 mg/dL (8.4-10.2); Carbon Dioxide 29 mmol/L (22-29); Chloride 104 mmol/L (96-108); Estimated Glomerular Filt Rate > 60; Glucose Random 90 mg/dL (60-115); Potassium 4.3 mmol/L (3.3-5.1); Sodium 144 mmol/L (135-145); Total Protein 6.6 g/dL (6.5-8.0); Uric Acid 5.4 mg/dL (3.4-7.0)
== END 2022-10-30 06:02 | disposition home or self-care (01) ==
LOC: HO.LAB 06:01
PROVIDERS: PCP Internal Medicine; Visit Provider Internal Medicine
DX: E79.0 Hyperuricemia without signs of inflammatory arthritis and tophaceous disease (principal); M19.90 Unspecified osteoarthritis, unspecified site; G62.9 Polyneuropathy, unspecified
CPT/HCPCS: 36415; 80053; 84550

== ENCOUNTER 2023-03-04 06:03 | Outpatient (REF) | payer BC, SELFPAY ==
[2023-03-04 06:26] LABS: MANUAL DIFF FLAG NO
[2023-03-04 07:06] LABS: Basophils Percent Auto 0.6 % (0-2); Eosinophils Absolute Auto 0.1 X10*3/uL (0.0-0.4); Hematocrit 49.9 % (42.0-52.0); Hemoglobin 16.9 g/dl (14.0-18.0); Imm Gran Abs Auto 0.04 X10*3/uL (0.00-0.03); Imm Gran Pct Auto 0.6 % (0.0-0.4); Lymphocytes Absolute Auto 1.7 X10*3/uL (1.2-4.9); Lymphocytes Percent Auto 24.6 % (20-40); Mean Corpuscular HGB Conc 33.9 g/dl (31.0-36.0); Mean Corpuscular Hemoglobin 32.6 pg (27.0-33.0); Mean Corpuscular Volume 96.1 fL (80.0-98.0); Mean Platelet Volume 10.5 fL (9.4-12.4); Monocytes Absolute Auto 0.6 X10*3/uL (0.1-1.2); Monocytes Percent Auto 8.5 % (2-11); Neutrophils Absolute Auto 4.5 x10*3/uL (2.0-8.3); Neutrophils Percent Auto 63.7 % (45-73); Platelet Count 190 X10*3/uL (160-400); Red Blood Count 5.19 X10*6/uL (4.60-5.80)
[2023-03-04 07:31] LABS: Alanine Aminotransferase 41 U/L (0-40); Albumin Level 3.6 g/dL (3.5-5.0); Alkaline Phosphatase 92 U/L (39-117); Anion Gap 18 (12-20); Aspartate Amino Transferase 43 U/L (5-37); Bilirubin Total 1.4 mg/dL (0.0-1.0); Blood Urea Nitrogen 11 mg/dL (9-16); Calcium 9.7 mg/dL (8.4-10.2); Carbon Dioxide 25 mmol/L (22-29); Chloride 105 mmol/L (96-108); Cholesterol 169 mg/dL; Estimated Glomerular Filt Rate > 60; Glucose Fasting 99 mg/dL (60-99); HDL Cholesterol 42 mg/dL; LDL Cholesterol Calculated 103 mg/dl; Potassium 4.5 mmol/L (3.3-5.1); Sodium 143 mmol/L (135-145); Total Protein 7.3 g/dL (6.5-8.0); Triglycerides 120 mg/dL
[2023-03-04 07:49] LABS: Prostate Specific Antigen 1.25 ng/mL (<0.05-4.0)
[2023-03-04 14:59] LABS: Appearance Urine Clear; Color Urine Dark Yellow; Glucose Urine UA Negative (Negative); Leukocyte Esterase Urine Negative (Negative); Nitrite Urine Negative (Negative); Specific Gravity - Urine 1.015 (1.005-1.025); Urine Blood Negative (Negative); Urine Ketones Negative (Negative); Urine Protein Negative (Neg-Trace)
[2023-03-04 15:02] LABS: Bacteria Urine None Seen (None Seen); Hyaline Casts Urine 0-2 /LPF (0-2); RBC Urine 0-2 /HPF (0-2); Squamous Epithelial Cell Urine 0-2 /HPF (0-2); WBC Urine 0-5 /HPF (0-5)
== END 2023-03-04 06:04 | disposition home or self-care (01) ==
LOC: HO.LAB 06:03
PROVIDERS: PCP Internal Medicine; Visit Provider Internal Medicine
DX: M10.9 Gout, unspecified (principal); R00.0 Tachycardia, unspecified; R63.5 Abnormal weight gain; Z12.5 Encounter for screening for malignant neoplasm of prostate
CPT/HCPCS: 36415; 80053; 80061; 81001; 84153; 85025

== ENCOUNTER 2023-10-08 15:34 | Outpatient (REF) | payer BC, SELFPAY ==
[2023-10-08 17:57] LABS: Alanine Aminotransferase 61 U/L (0-40); Albumin Level 3.8 g/dL (3.5-5.0); Alkaline Phosphatase 101 U/L (39-117); Anion Gap 14 (12-20); Aspartate Amino Transferase 54 U/L (5-37); Bilirubin Total 1.1 mg/dL (0.0-1.0); Blood Urea Nitrogen 14 mg/dL (9-16); Calcium 9.1 mg/dL (8.4-10.2); Carbon Dioxide 30 mmol/L (22-29); Chloride 102 mmol/L (96-108); Estimated Glomerular Filt Rate > 60; Glucose Random 82 mg/dL (60-115); Potassium 3.9 mmol/L (3.3-5.1); Sodium 142 mmol/L (135-145); Total Protein 7.4 g/dL (6.5-8.0); Uric Acid 7.3 mg/dL (3.4-7.0)
== END 2023-10-08 15:35 | disposition home or self-care (01) ==
LOC: HO.LAB 15:34
PROVIDERS: PCP Internal Medicine; Visit Provider Internal Medicine
DX: M10.9 Gout, unspecified (principal); R79.89 Other specified abnormal findings of blood chemistry; G62.9 Polyneuropathy, unspecified
CPT/HCPCS: 36415; 80053; 84550

== ENCOUNTER 2023-12-25 13:49 | Outpatient (AMB) | payer BC, SELFPAY ==
--- NOTE | 2023-12-25 13:50 | A.OFFVIS_ITS ---
Vital Signs 3 12/25/23 14:01 Height 5 ft 9 in Weight 203 lb BMI 30.0 BP 166/87 H Blood Pressure Location Rt brachial Position Sitting Pulse 106 H Intake Visit Reasons: scalp lesion Intake Note: Patient referred by PCP Dr. Diaz for lesion on Lt parietal scalp. Just noticed 1m ago. Patient c/o: denies bleeding. Crusty at times. No personal hx of skin ca. Director [place] Required: No Accompanied by: Self / Same As Patient Allergies No Known Allergies Allergy (Verified 12/25/23 13:56) Medication List - Last Reconciled 12/25/23 by Deon Villafana MD allopurinol 300 mg PO DAILY cholecalciferol (vitamin D3) 25 mcg PO DAILY cyanocobalamin (vitamin B-12) (Vitamin B-12) 1,000 mcg PO DAILY gabapentin 300 mg PO DAILY multivitamin 1 tab PO DAILY HPI Comments Details: 58-year-old male patient presenting for evaluation of a skin lesion on the left scalp. He recently identified the scalp lesion after feeling a bump and had his take a picture of the lesion. He noted a black lesion and was very concerned. 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 He is also a golfer and spends many hours in the sun as well. He denies a previous history of skin cancers. He denies any bleeding or discharge from the site. [facility] Social History Household Members: Spouse Housing: House Do you presently have visiting nurse or other home services: No Comment: 1:1 sitter Patient Tobacco Use Status: Current someday Tobacco user Tobacco use type: Cigarette Second Hand Smoke Exposure: No service: No Current occupational status: employed Review of Systems Const All systems reviewed & are unremarkable except as noted in HPI and below Denies chills, Denies fever(s), Denies headache(s), Denies poor appetite and Denies weakness ENT Denies headache(s) Card Denies chest pain, Denies irregular heart rhythm, Denies palpitations and Denies dyspnea Resp Denies cough, Denies excessive phlegm production and Denies dyspnea GI Denies abdominal pain, Denies bloating, Denies change in bowel habits, Denies constipation, Denies heartburn, Denies diarrhea, Denies nausea and Denies vomiting Denies difficulty urinating and Denies urinary frequency Musc Denies back pain, Denies muscle weakness and Denies numbness Skin/Breast Reports as per HPI, Denies changing lesions and Denies unusual bruising Neuro Denies headache(s), Denies numbness, Denies paresthesias and Denies weakness Psych Denies anxiety and Denies depression Endo Denies palpitations Frank/Lymph Denies lymphadenopathy Physical Exam Vital Signs: Last Vital Signs Pulse 106 H 12/25/23 14:01 BP 166/87 H 12/25/23 14:01 BMI result Body Mass Index 30.0 Const General: cooperative and no acute distress Nutritional Appearance: well nourished Orientation/consciousness: patient oriented x3 Limitations: no limitations HEENT Head: Yes normocephalic and Yes atraumatic Head images: 2 1. 1.8 cm black/crusted lesion without ulceration or bleeding. Margin is fairly symmetric and color is even. Lesion may be suggestive of a seborrheic keratosis but malignancy needs to be ruled out. Ears: hearing grossly normal bilaterally Resp Effort & Inspection: normal respiratory effort, no audible wheezes, no cough and no respiratory distress Cardio Jugular venous distension: no JVD GI Inspection: Yes normal to inspection Skin Other: Warm, dry, no rash Neuro General: patient oriented x3 Extrem General: Yes no clubbing, cyanosis or edema Assessment & Plan Assessment & Plan (1) Dermal nevus of scalp: Code(s): D23.4 - Other benign neoplasm of skin of scalp and neck Category: Medical Plan 58-year-old male patient presenting with a black crusted lesion of the left scalp recently identified by the patient. On examination there is a 1.8 cm slightly raised, black and crusted lesion. I recommended excision of this lesion which can be performed as a short-stay surgery. After discussion of the procedure, risks, and alternatives, he consents to excision of the left scalp lesion. Coding Level of Care Code New Pt Level 4 (90443) Diagnoses Dermal nevus of scalp D23.4
[2023-12-25 14:01] VITALS: BP 166/87; PULSE 106
== END 2023-12-25 14:11 | disposition home or self-care (01) ==
PROVIDERS: PCP Internal Medicine; Visit Provider Surgery
DX: D23.4 Other benign neoplasm of skin of scalp and neck (principal)
CPT/HCPCS: 99204

== ENCOUNTER → 2023-12-25 13:49 | Outpatient (BNVA) | payer BC, SELFPAY | PROVIDERS: PCP Internal Medicine; Visit Provider Surgery ==

== ENCOUNTER → 2024-01-12 14:45 | Outpatient (BNV) | payer BC, SELFPAY | PROVIDERS: PCP Internal Medicine; Visit Provider Internal Medicine | DX: R94.31 Abnormal electrocardiogram [ECG] [EKG] (principal); Z01.810 Encounter for preprocedural cardiovascular examination; I44.4 Left anterior fascicular block | CPT/HCPCS: 93010 ==

== ENCOUNTER 2024-01-19 06:47 | Day surgery (SDC) | payer BC, SELFPAY ==
--- NOTE | 2024-01-12 | ECG_ITS ---
Test Reason : preop Blood Pressure : / mmHG Vent. Rate : 091 BPM Atrial Rate : 091 BPM P-R Int : 172 ms QRS Dur : 068 ms QT Int : 364 ms P-R-T Axes : -02 -45 006 degrees QTc Int : 447 ms Normal sinus rhythm Left axis deviation Abnormal ECG When compared with ECG of 05-SEP-2021 16:13, Vent. rate has decreased BY 60 BPM T wave inversion less evident in Inferior leads Referred By: Mary Anne Myers Electronically Signed By:KRISTIAN JEFFERY
[2024-01-12 14:00] VITALS: BP 138/101; PULSE 102; RESP 20; O2SAT 97; BMI 30.3
[2024-01-12 15:43] LABS: Hematocrit 48.1 % (42.0-52.0); Hemoglobin 16.7 g/dl (14.0-18.0); Mean Corpuscular HGB Conc 34.7 g/dl (31.0-36.0); Mean Corpuscular Hemoglobin 33.7 pg (27.0-33.0); Mean Corpuscular Volume 97.2 fL (80.0-98.0); Mean Platelet Volume 10.6 fL (9.4-12.4); Platelet Count 191 X10*3/uL (160-400); Red Blood Count 4.95 X10*6/uL (4.60-5.80); Red Cell Distribution Width 12.3 % (11.0-16.0); White Blood Count 11.8 X10*3/uL (4.8-10.8)
[2024-01-19 07:52] VITALS: BP 184/96; PULSE 84; RESP 16; TEMP 36.5; O2SAT 99
--- NOTE | 2024-01-19 07:54 | PC.NURSE ---
#20 IV Right AC placed by Cecy Ramirez RN
[2024-01-19] MEDS: Lactated Ringers 1,000 ML 100 ML IVCONT (07:55)
--- NOTE | 2024-01-19 08:20 | MHC.SHP ---
Pre-Procedural Eval Section A - 24 Hr Update-Section A only Date of Service: 01/19/24 The patient is an INPATIENT: No Changes since office visit: Yes Patient answered all questions; No Cold of Flu in the past 2 weeks, No New Medical Problems and No Changes in Medication The patient has been examined within 24 hours of the surgical procedure. The History & Physical has been completed within 30 days and I have reviewed it.: Yes Section B - Complete if H&P > 30 days Chief Complaint: Other benign neoplasm of skin of scalp and neck Allergies: Allergies Allergy/AdvReac Type Severity Reaction Status Date / Time No Known Allergies Allergy Verified 12/25/23 13:56 Plan Diagnosis/Plan: Unchanged I have reviewed the history and physical and performed a pertinent physical examination on my patient. No changes have occurred unless specified. Time Spent With Patient Time: Total time managing care of this patient today ____ minutes.
[2024-01-19 08:30] VITALS: BMI 29.8
--- NOTE | 2024-01-19 08:30 | HO.ANESPROP2 ---
Documented by User: Mary Anne Myers NP 01/13/24 13:51 HPI - Anesthesia Eval Consult details Narrative: 58yo M for Left No recent illness No CP/SOB with golf, stairs, yardwork Hx of ETOH abuse with withdrawal, only couple beers on the weekend now Remote hx DVT x 1, no OAC now PMFSH Active Problems Active Problems: All Active Problems Dermal nevus of scalp (Acute) Neuropathy (Acute) Fracture of left great toe (Acute) Severe sprain of left ankle (Acute) Contusion of knee, right (Acute) Contusion of knee, left (Acute) Toe fracture (Acute) Fungal toenail infection (Acute) Alcohol withdrawal (Acute) Delirium tremens (Acute) Past Medical History Medical History (Updated 01/12/24 @ 13:59 by Lavern Bucio RN) Gout Arthritis DVT (deep venous thrombosis) Alcohol abuse Neuropathy Family History Family history of problems with anesthesia: No Surgical History Surgical History (Updated 01/09/24 @ 09:54 by Lavern Bucio RN) H/O colonoscopy History of Problems with Anesthesia: No Social History Social History Household Members: Spouse Housing: House Are you a primary floor care technician to a significant other at home: No Do you presently have visiting nurse or other home services: No Comment: 1:1 sitter Patient Tobacco Use Status: Current everyday Tobacco user Tobacco use type: Cigarette Cigarettes Per Day: 8 Years Smoked: 30 Second Hand Smoke Exposure: No service: No Current occupational status: employed Meds Allergies Allergy/AdvReac Type Severity Reaction Status Date / Time No Known Allergies Allergy Verified 12/25/23 13:56 Home Medications ?Medication ?Instructions ?Recorded ?Confirmed ?Last Taken ?Type cholecalciferol (vitamin D3) 25 25 mcg PO QAM 09/05/21 01/12/24 01/18/24 History mcg (1,000 unit) tablet multivitamin 1 tab PO DAILY 09/05/21 01/12/24 01/18/24 History allopurinol 300 mg tablet 300 mg PO QAM 12/25/23 01/12/24 01/18/24 History gabapentin 100 mg capsule 300 mg PO TID 01/12/24 01/12/24 01/18/24 History vitamin E 268 mg (400 unit) capsule 268 mg PO QAM 01/12/24 01/12/24 01/18/24 History Exam Height,Weight and Vital Signs: Height 5 ft 9 in Weight 93.2 kg Last Vital Signs Pulse 102 H 01/12/24 14:00 Resp 20 01/12/24 14:00 BP 138/101 H 01/12/24 14:00 Pulse Ox 97 01/12/24 14:00 O2 Del Method Room Air 01/12/24 14:00 Pertinent Lab Results Pertinent Lab Results: Lab Results 01/12/24 Range/Units 14:41 WBC 11.8 H (4.8-10.8) X10*3/uL RBC 4.95 (4.60-5.80) X10*6/uL Hgb 16.7 (14.0-18.0) g/dl Hct 48.1 (42.0-52.0) % MCV 97.2 (80.0-98.0) fL MCH 33.7 H (27.0-33.0) pg MCHC 34.7 (31.0-36.0) g/dl RDW 12.3 (11.0-16.0) % Plt Count 191 (160-400) X10*3/uL MPV 10.6 (9.4-12.4) fL Absolute Nucleated RBC 0.000 (0.0-0.012) X10*3/uL Nucleated RBC % (auto) 0.0 (0.0-0.2) /100WBC PT 12.0 (11.1-13.3) SEC INR 1.0 (0.9-1.1) Laboratory Tests 10/08/23 15:47 Sodium 142 Potassium 3.9 Chloride 102 Carbon Dioxide 30 H BUN 14 Creatinine 1.02 Narrative Narrative: EKG 01/2024 Vent. Rate : 091 BPM Atrial Rate : 091 BPM P-R Int : 172 ms QRS Dur : 068 ms QT Int : 364 ms P-R-T Axes : -02 -45 006 degrees QTc Int : 447 ms Normal sinus rhythm Left axis deviation Abnormal ECG When compared with ECG of 05-SEP-2021 16:13, Vent. rate has decreased BY 60 BPM Minimal criteria for Anterior infarct are no longer Present Criteria for Inferior infarct are no longer Present T wave inversion less evident in Inferior leads Airway Mallampati Class: III TM Dist: >3cm Neck ROM: Full Loose/Missing/Broken Teeth: Yes (Molars pulled) Heart: RRR Lungs: CTAB Assessment and Plan Assessment Anesthesia Assessment: Anesthesia Plan Discussed and PAT Visit Final Anesthetic Review Family History of Problems with Anesthesia: No History of Problems with Anesthesia: No Documented by User: Hali Young, 01/19/24 08:33 HPI - Anesthesia Eval Consult details Narrative: 58yo M for Left Scalp Lesion Excision No recent illness No CP/SOB with golf, stairs, yardwork Hx of ETOH abuse with withdrawal Remote hx DVT x 1, no OAC now Reports a few drinks daily. Smoker. [facility] / [facility] Past Medical History Medical History (Updated 01/12/24 @ 13:59 by Lavern Bucio RN) Gout Arthritis DVT (deep venous thrombosis) Alcohol abuse Neuropathy Family History Family history of problems with anesthesia: No Surgical History Surgical History (Updated 01/09/24 @ 09:54 by Lavern Bucio RN) H/O colonoscopy History of Problems with Anesthesia: No Social History Social History Household Members: Spouse Housing: House Are you a primary floor care technician to a significant other at home: No Do you presently have visiting nurse or other home services: No Comment: 1:1 sitter Patient Tobacco Use Status: Current everyday Tobacco user Tobacco use type: Cigarette Cigarettes Per Day: 8 Years Smoked: 30 Second Hand Smoke Exposure: No service: No Current occupational status: employed Meds Allergies Allergy/AdvReac Type Severity Reaction Status Date / Time No Known Allergies Allergy Verified 12/25/23 13:56 Home Medications ?Medication ?Instructions ?Recorded ?Confirmed ?Last Taken ?Type cholecalciferol (vitamin D3) 25 25 mcg PO QAM 09/05/21 01/12/24 01/18/24 History mcg (1,000 unit) tablet multivitamin 1 tab PO DAILY 09/05/21 01/12/24 01/18/24 History allopurinol 300 mg tablet 300 mg PO QAM 12/25/23 01/12/24 01/18/24 History gabapentin 100 mg capsule 300 mg PO TID 01/12/24 01/12/24 01/18/24 History vitamin E 268 mg (400 unit) capsule 268 mg PO QAM 01/12/24 01/12/24 01/18/24 History Exam Exam Date and Time: January 19, [id number] Height,Weight and Vital Signs: Height 5 ft 9 in Weight 91.626 kg Vital Signs Pulse Rate 102 H 01/12/24 14:00 Respiratory Rate 20 01/12/24 14:00 Blood Pressure 138/101 H 01/12/24 14:00 Pulse Oximetry 97 01/12/24 14:00 Oxygen Delivery Method Room Air 01/12/24 14:00 Temperature 97.7 F 01/19/24 07:52 Pulse Rate 84 01/19/24 07:52 Respiratory Rate 16 01/19/24 07:52 Blood Pressure 184/96 H 01/19/24 07:52 Pulse Oximetry 99 01/19/24 07:52 Oxygen Delivery Method Room Air 01/19/24 07:52 Height 5 ft 9 in Weight 93.2 kg Last Vital Signs Pulse 102 H 01/12/24 14:00 Resp 20 01/12/24 14:00 BP 138/101 H 01/12/24 14:00 Pulse Ox 97 01/12/24 14:00 O2 Del Method Room Air 01/12/24 14:00 Airway Mallampati Class: II TM Dist: <=3cm Neck ROM: Full Loose/Missing/Broken Teeth: Yes (Molars pulled, multiple chipped teeth) Heart: S1S2 Assessment and Plan Assessment Anesthesia Assessment: Anesthesia Plan Discussed and Chart Reviewed Final Anesthetic Review Family History of Problems with Anesthesia: No History of Problems with Anesthesia: No NPO: Yes ASA Class: III Final Preanesthetic Review: No Changes in Pt Med Stat, Meds/Allgs Chart Reviewed, Consent Obtained/Reviewed and Anes Risks/Benef Reviewed Patient Risk: Low Procedure Risk: Low Anesthetic Plan Anesthetic Plan: GA and Agree w/ Assess. and Plan Disposition: Standard PACU
--- NOTE | 2024-01-19 09:29 | P.OP_ITS ---
Operative Note Operative Note Date of Service: 01/19/24 Narrative: Preoperative diagnosis: Large nevus left scalp Postoperative diagnosis: Same Procedure: Excision of large nevus left scalp Surgeon: Deon Villafana MD Patient Coordinator Front Desk: Liseth Richmond PA-C Anesthesia: General LMA Indications for procedure: 58-year-old male with a gradually enlarging black lesion located on the left scalp measuring 1.8 cm in diameter. Operative findings: 1.8 cm black, variegated lesion Specimen: Large nevus left scalp Estimated blood loss: 3 mL Complications: None Procedure details: Patient was brought to the OR and placed in a supine position. After administering general anesthesia the patient's left scalp was prepped with Betadine and draped in a sterile fashion. A surgical time-out was called the consent confirmed. Patient received preoperative antibiotics and Venodyne boots were in place. Local anesthesia consisting of lidocaine 1% with epinephrine was then infiltrated surrounding the lesion. Elliptical incision with 2 mm margins was then created around the lesion. This is carried out through subcutaneous tissue. Electrocautery was then used to dissect the lesion off the muscle fascia. Lesion was passed off the table and sent to pathology for further examination. Hemostasis was again assured using electrocautery. Dermis was reapproximated using interrupted 3-0 Polysorb sutures. Skin was then closed using interrupted 3-0 Prolene sutures. Bacitracin ointment was then applied. The patient tolerated the procedure well. Sponge, instrument, and needle counts reported as correct. The patient was transferred to PACU in stable condition.
[2024-01-19 09:39] VITALS: BP 165/94; PULSE 82; RESP 16; TEMP 36.1; O2SAT 97
[2024-01-19 09:44] VITALS: BP 149/91; PULSE 83; RESP 16; O2SAT 97
[2024-01-19 09:49] VITALS: BP 145/69; PULSE 83; RESP 16; O2SAT 95
[2024-01-19 09:54] VITALS: BP 144/89; PULSE 79; RESP 16; O2SAT 95
[2024-01-19 10:09] VITALS: BP 150/80; PULSE 81; RESP 16; TEMP 36.2; O2SAT 95
== END 2024-01-19 10:56 | disposition home or self-care (01) ==
PROVIDERS: Nurse Practitioner; PCP Internal Medicine; Visit Provider Surgery
PROC: (CPT 11622; principal; 2024-01-19 08:50)
DX: C43.4 Malignant melanoma of scalp and neck (principal); G62.9 Polyneuropathy, unspecified; I12.9 Hypertensive chronic kidney disease with stage 1 through stage 4 chronic kidney disease, or unspecified chronic kidney disease; N18.2 Chronic kidney disease, stage 2 (mild); E78.00 Pure hypercholesterolemia, unspecified; M10.9 Gout, unspecified; M15.9 Polyosteoarthritis, unspecified; E66.9 Obesity, unspecified; R94.5 Abnormal results of liver function studies; F10.21 Alcohol dependence, in remission; Z79.899 Other long term (current) drug therapy; Z99.89 Dependence on other enabling machines and devices; Z91.81 History of falling; Z86.16 Personal history of COVID-19; F17.210 Nicotine dependence, cigarettes, uncomplicated
CPT/HCPCS: 11622; 12031; 36415; 85027; 85610; 88304; 88305; 93005; J0131; J0690; J1100; J1885; J2250; J2371; J2405; J2704; J2795; J3010

== ENCOUNTER → 2024-01-19 06:47 | Outpatient (BNV) | payer BC, SELFPAY | PROVIDERS: PCP Internal Medicine; Visit Provider Surgery | DX: C43.4 Malignant melanoma of scalp and neck (principal) | CPT/HCPCS: 11623 ==

== ENCOUNTER 2024-01-29 13:04 | Outpatient (AMB) | payer BC, SELFPAY ==
--- NOTE | 2024-01-29 13:06 | A.OFFVIS_ITS ---
Intake Visit Reasons: S/P excision Lt. scalp lesion Intake Note: Patient is seen in office for post op assessment post excision of left scalp lesion. Pt c/o: Op:01/19/24 Allergies No Known Allergies Allergy (Verified 12/25/23 13:56) Medication List - Last Reconciled 01/29/24 by Deon Villafana MD allopurinol 300 mg PO QAM cholecalciferol (vitamin D3) 25 mcg PO QAM cyanocobalamin (vitamin B-12) (Vitamin B-12) 1,000 mcg PO DAILY gabapentin 300 mg PO TID multivitamin 1 tab PO DAILY oxycodone 5 mg PO Q6H PRN vitamin E 268 mg PO QAM HPI Comments Details: 58-year-old male patient presenting for evaluation of a skin lesion on the left scalp. He recently identified the scalp lesion after feeling a bump and had his take a picture of the lesion. He noted a black lesion and was very concerned. 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 He is also a golfer and spends many hours in the sun as well. He denies a previous history of skin cancers. He denies any bleeding or discharge from the site. He returns today following excision of the left scalp lesion on 01/19/2024. Pathology revealed: Skin, left scalp, excision: - Invasive melanoma, superficial spreading type, 2.2 cm. - Breslow depth of 1.8 mm (Femi's level III). - Negative for ulceration and lymphovascular invasion. - Invasive melanoma is 0.7 mm to the nearest peripheral margin. - Melanoma in situ is 0.1 mm to the nearest peripheral margin. - AJCC Stage (8th edition): [id number] PFSH Medical History Malignant melanoma of scalp Gout Arthritis DVT (deep venous thrombosis) Alcohol abuse Neuropathy Surgical History H/O excision of mass (01/19/24) H/O colonoscopy Social History Household Members: Spouse Housing: House Are you a primary rn transitional care to a significant other at home: No Do you presently have visiting nurse or other home services: No Patient Tobacco Use Status: Current everyday Tobacco user Tobacco use type: Cigarette Cigarettes Per Day: 8 Years Smoked: 30 Second Hand Smoke Exposure: No service: No Current occupational status: employed Physical Exam Const General: cooperative and no acute distress Nutritional Appearance: well nourished Orientation/consciousness: patient oriented x3 Limitations: no limitations HEENT Head: Yes normocephalic and Yes atraumatic Head images: 2 1. Incision left scalp is clean, dry and intact. Sutures removed and the wounds found to be well healed. Ears: hearing grossly normal bilaterally Resp Effort & Inspection: normal respiratory effort, no audible wheezes, no cough and no respiratory distress Cardio Jugular venous distension: no JVD GI Inspection: Yes normal to inspection Skin Other: Warm, dry, no rash Neuro General: patient oriented x3 Extrem General: Yes no clubbing, cyanosis or edema Assessment & Plan Assessment & Plan (1) Malignant melanoma of scalp: Code(s): C43.4 - Malignant melanoma of scalp and neck Category: Medical Plan 58-year-old male patient presenting with a newly diagnosed malignant melanoma of the left scalp. Margins were negative but are close for melanoma in-situ. Patient will require further evaluation by Surgical Oncology and will be referred to [facility]. A copy of the report was provided to the patient as well. He expressed understanding and agrees with the plan. Orders: Referrals 2 Surgical Oncology Referral C43.4 - Malignant melanoma of scalp and neck Coding Level of Care Code Global (37630) Diagnoses Malignant melanoma of scalp C43.4
== END 2024-01-29 13:20 | disposition home or self-care (01) ==
PROVIDERS: PCP Internal Medicine; Visit Provider Surgery
DX: C43.4 Malignant melanoma of scalp and neck (principal)
CPT/HCPCS: 99024

== ENCOUNTER → 2024-01-29 13:04 | Outpatient (BNVA) | payer BC, SELFPAY | PROVIDERS: PCP Internal Medicine; Visit Provider Surgery ==

== ENCOUNTER 2024-02-26 05:59 | Outpatient (REF) | payer BC, SELFPAY ==
[2024-02-26 07:20] LABS: Alanine Aminotransferase 52 U/L (0-40); Albumin Level 3.4 g/dL (3.5-5.0); Alkaline Phosphatase 124 U/L (39-117); Anion Gap 18 (12-20); Aspartate Amino Transferase 54 U/L (5-37); Bilirubin Total 1.2 mg/dL (0.0-1.0); Blood Urea Nitrogen 7 mg/dL (9-16); Calcium 8.4 mg/dL (8.4-10.2); Carbon Dioxide 25 mmol/L (22-29); Chloride 106 mmol/L (96-108); Cholesterol 142 mg/dL (<200); Estimated Glomerular Filt Rate > 60; Glucose Fasting 99 mg/dL (60-99); HDL Cholesterol 45 mg/dL (>40); LDL Cholesterol Calculated 67 mg/dL (<100); Potassium 3.7 mmol/L (3.3-5.1); Sodium 145 mmol/L (135-145); Total Protein 6.6 g/dL (6.5-8.0); Triglycerides 152 mg/dL (<150)
[2024-02-26 07:27] LABS: Alanine Aminotransferase 53 U/L (0-40); Albumin Level 3.4 g/dL (3.5-5.0); Alkaline Phosphatase 126 U/L (39-117); Aspartate Amino Transferase 54 U/L (5-37); Bilirubin Direct 0.3 mg/dL (0.0-0.5); Bilirubin Total 1.2 mg/dL (0.0-1.0); Iron 116 mcg/dL (45-160); Percent Iron Saturation 39 % (15-50); Total Iron Binding Capacity 294 mcg/dL (228-428); Total Protein 6.6 g/dL (6.5-8.0); Unsaturated Iron Binding 178 ug/dL
[2024-02-26 07:39] LABS: Prostate Specific Antigen 1.05 ng/mL (<0.05-4.0)
[2024-02-26 07:40] LABS: HBS Num1 0.36 mIU/mL (0-7.99); HBc Num1 0.05 S/CO (0.00-0.79); HBsAGNum1 0.25 S/CO (0.00-0.99); Hepatitis B Core Antibody Nonreactive (Nonreactive); Hepatitis B Surface Antigen Negative (Negative); ~HepC Num1 0.11 S/CO (0.00-0.79); ~Hepatitis B Surface Antibody NONREACTIVE (Nonreactive); ~Hepatitis C Antibody Nonreactive (Nonreactive)
[2024-02-26 07:43] LABS: Ferritin 306 ng/mL (20-250)
[2024-02-27 23:04] LABS: Alpha 1 Anti-trypsin 190 mg/dL (83-199)
[2024-03-02 15:13] LABS: Mitochondrial Antibodies NEGATIVE (NEGATIVE)
[2024-03-03 07:42] LABS: Anti Nuclear Antibody Screen NEGATIVE (NEGATIVE)
[2024-03-04 12:24] LABS: Smooth Muscle Antibody <20 U (<20)
[2024-03-05 16:59] LABS: FIB-ALT 48 U/L (9-46); FIB-Alpha-2-Macroglobulin 148 mg/dL (106-279); FIB-Apolipoprotein A1 163 mg/dL (94-176); FIB-GGT 55 U/L (3-70); FIB-Haptoglobin 224 mg/dL (43-212); FIB-Total Bilirubin 1.1 mg/dL (0.2-1.2); Liver Fibrosis Score 0.23; Liver Fibrosis Stage F0-F1; Nec Inflam Act Grade A0-A1; Nec Inflam Act Score 0.26
== END 2024-02-26 06:00 | disposition home or self-care (01) ==
LOC: HO.LAB 05:59
PROVIDERS: Absent Provider Internal Medicine; PCP Internal Medicine; Visit Provider Internal Medicine
DX: K76.0 Fatty (change of) liver, not elsewhere classified (principal); Z12.5 Encounter for screening for malignant neoplasm of prostate; R94.5 Abnormal results of liver function studies
CPT/HCPCS: 36415; 80053; 80061; 80076; 81596; 82103; 82248; 82728; 83540; 84153; 86015; 86038; 86381; 86704; 86706; 86803; 87340

== ENCOUNTER 2024-05-31 07:05 | Day surgery (SDC) | payer BC, SELFPAY ==
[2024-05-27 11:20] VITALS: BMI 29.8
[2024-05-31 07:43] VITALS: BMI 29.9
[2024-05-31 07:50] VITALS: BP 156/87; PULSE 95; RESP 18; TEMP 36.5; O2SAT 97
--- NOTE | 2024-05-31 07:58 | P.CONAN_ITS ---
HPI - Anesthesia Eval Consult details Narrative: 59 yo male patient for Colonoscopy PMFSH Active Problems Active Problems: All Active Problems Dermal nevus of scalp (Acute) Neuropathy (Acute) Fracture of left great toe (Acute) Severe sprain of left ankle (Acute) Contusion of knee, right (Acute) Contusion of knee, left (Acute) Toe fracture (Acute) Fungal toenail infection (Acute) Alcohol withdrawal (Acute) Delirium tremens (Acute) Malignant melanoma of scalp (Acute) H/o ETOH abuse. Last drink 2 days ago Smoker Past Medical History Medical History Malignant melanoma of scalp Gout Arthritis DVT (deep venous thrombosis) Alcohol abuse Neuropathy Family History Family history of problems with anesthesia: No Surgical History Surgical History H/O excision of mass (01/19/24) H/O colonoscopy History of Problems with Anesthesia: No Social History Social History Household Members: Spouse Housing: House Are you a primary acute care clinical nurse specialist to a significant other at home: No Do you presently have visiting nurse or other home services: No Patient Tobacco Use Status: Current everyday Tobacco user Tobacco use type: Cigarette Cigarettes Per Day: 6 Years Smoked: 30 Second Hand Smoke Exposure: No Use of substances other than those prescribed or required for medical reasons: No Have you been hit, kicked, punched, or otherwise hurt by someone within the past year? If so, by whom?: No Buddhist Healthcare Practices: Religious Are you DNR?: No Advance Directives Information Provided: Yes (as above noted) Advance Directives on File: No Recently lost weight without trying: No Eating poorly because of decreased appetite: No Nutrition Risks: No Nutritional Risk Poor oral hygiene: No service: No Current occupational status: employed Meds Allergies Allergy/AdvReac Type Severity Reaction Status Date / Time No Known Allergies Allergy Verified 12/25/23 13:56 Active Medications: Current Medications Sodium Biphosphate/Sodium Phosphate (Sodium Phosphate,Troup-Dibasic 133 Ml Enema) 133 ml WI ONCE PRN PRN Reason: Poor Colonoscopy Prep Results Home Medications ?Medication ?Instructions ?Recorded ?Confirmed ?Last Taken ?Type cholecalciferol (vitamin D3) 25 25 mcg PO QAM 09/05/21 05/27/24 01/18/24 History mcg (1,000 unit) tablet multivitamin 1 tab PO DAILY 09/05/21 05/27/24 01/18/24 History allopurinol 300 mg tablet 300 mg PO QAM 12/25/23 05/27/24 01/18/24 History gabapentin 100 mg capsule 300 mg PO TID 01/12/24 05/27/24 01/18/24 History vitamin E 268 mg (400 unit) capsule 268 mg PO QAM 01/12/24 05/27/24 01/18/24 History Exam Height,Weight and Vital Signs: Height 5 ft 9 in Weight 91.739 kg Last Vital Signs Temp 97.7 F 05/31/24 07:50 Pulse 95 05/31/24 07:50 Resp 18 05/31/24 07:50 BP 156/87 H 05/31/24 07:50 Pulse Ox 97 05/31/24 07:50 O2 Del Method Room Air 05/31/24 07:50 Airway Mallampati Class: IV (Opens mouth minimally) TM Dist: >3cm Neck ROM: Full Loose/Missing/Broken Teeth: No Heart: RRR Lungs: CTAB Assessment and Plan Assessment Anesthesia Assessment: Anesthesia Plan Discussed and Chart Reviewed Final Anesthetic Review Family History of Problems with Anesthesia: No History of Problems with Anesthesia: No NPO: Yes ASA Class: III Final Preanesthetic Review: No Changes in Pt Med Stat, Meds/Allgs Chart Reviewed, Consent Obtained/Reviewed and Anes Risks/Benef Reviewed Patient Risk: Intermediate Procedure Risk: Low Assessment/Block/Sedation in SS: Assess/Block/Sedation-SS Anesthetic Plan Anesthetic Plan: TIVA Disposition: Standard PACU
[2024-05-31] MEDS: Lactated Ringers 1,000 ML 100 ML IVCONT (08:02)
[2024-05-31 10:15] VITALS: BP 90/64; PULSE 91; RESP 16; TEMP 37.4; O2SAT 95
[2024-05-31 10:20] VITALS: BP 121/82; PULSE 86; RESP 16; O2SAT 99
--- NOTE | 2024-05-31 10:21 | PM.OP ---
Brief Operative Note Date of Service: 05/31/24 Pre-op diagnosis: Screening Post-op diagnosis: other (Colon polyps) Procedure: Colonoscopy to the cecum with hot snare polypectomies, cold snare polypectomies, bx/removal of polyp, and placement of 1 resolution clip at 60cm Surgeon: Robe Garcia MD Anesthesia: MAC Was an Level Glass Forming Machine Operator used for this Procedure?: No Estimated blood loss (mL): 2.0 Pathology: other (A. Polyp at 50cm B. Polyp at 60cm C. Cecal polyps D. Ascending colon polyps E. Rectal polyp) Condition: stable Disposition: PACU
[2024-05-31 10:30] VITALS: BP 139/82; PULSE 89; RESP 20; TEMP 36.3; O2SAT 96
--- NOTE | 2024-05-31 10:50 | OP_ITS ---
DATE OF SERVICE: 05/31/2024 SURGEON: Robe Garcia MD INDICATIONS: The patient presents for evaluation of colorectal cancer screening and personal history of tubular adenoma of the colon. Full consent has been obtained from him for this, including risks of bleeding and perforation. PREOPERATIVE DIAGNOSIS: POSTOPERATIVE DIAGNOSIS: PROCEDURE PERFORMED: Colonoscopy to the cecum with hot snare polypectomies and cold snare polypectomies. ESTIMATED BLOOD LOSS: COMPLICATIONS: ANESTHESIA: Monitored anesthesia care. ASSISTANTS: SPECIMENS: PREOPERATIVE DIAGNOSES: Colorectal cancer screening and personal history of tubular adenoma of the colon. POSTOPERATIVE DIAGNOSES: Colorectal cancer screening, personal history of tubular adenoma of the colon, multiple colon polyps, diverticulosis, and internal hemorrhoids. DESCRIPTION OF PROCEDURE: The patient was placed in the left lateral decubitus position. The digital rectal exam revealed no abnormalities. The Olympus video pediatric colonoscope was then entered into the rectum and advanced easily to the cecum. Once in the cecum, I did identify cecal pouch with appendiceal orifice and a normal-appearing ileocecal valve. The entire cecum was well visualized. In the cecum, was an approximately 8 mm polyp, which was removed by hot snare polypectomy and recovered by suction. The polypectomy site appeared clean, without any sign of residual polyp nor bleeding. Also in the cecum, was a 3 mm polyp, which was biopsied and completely removed with the cold biopsy forceps. The scope was then slowly withdrawn assessing all mucosal surfaces carefully. Preparation was excellent. In the ascending colon, were 2 flat, approximately 4 or 5 mm polyps, which were each removed by cold snare polypectomy and recovered by suction. In the transverse colon, was a 4 mm polyp removed by cold snare polypectomy, but not recovered. At 60 cm, was an approximately 10 mm polyp, removed by hot snare polypectomy and then recovered by withdrawing it with a retrieval net. The scope was then readvanced back to the polypectomy site, which appeared clean, without any sign of residual polyp nor bleeding. However, a single Resolution clip was applied to the polypectomy site with good deployment and good hemostasis. At 50 cm, was an approximately 10 mm polyp, which was removed by hot snare polypectomy and recovered by suction. The polypectomy site appeared clean, without any sign of residual polyp nor bleeding. At 15 cm, was an approximately 4 or 5 mm polyp, which was removed by cold snare polypectomy, but not recovered. The polypectomy site appeared clean, without any sign of residual polyp nor significant bleeding. In the rectum, was an approximately 8 mm polyp, removed by hot snare polypectomy and recovered by suction. The polypectomy site appeared clean, without any sign of residual polyp nor bleeding. I did not visualize any other polyps, colitis, nor angiodysplasias. There was a moderate amount of sigmoid diverticulosis. In the rectum, scope was retroflexed, visualizing internal hemorrhoids, but no other pathology. The rectal mucosa appeared normal. The scope was straightened and withdrawn from the patient. He tolerated the procedure well and was returned to the recovery area in stable condition. IMPRESSION: 1. Colon polyps. 2. Diverticulosis. 3. Internal hemorrhoids. PLAN: The results of the pathology will be checked. I would recommend a repeat colonoscopy in 3 years for further surveillance. He was advised not to use any aspirin, NSAIDs, nor alcohol for at least 1 week. He was advised to avoid alcohol in general. MD MARILEE Hurtado/LINDSEY / [id number]
== END 2024-05-31 11:00 | disposition home or self-care (01) ==
PROVIDERS: PCP Internal Medicine; Visit Provider Internal Medicine
PROC: 0DJD8ZZ Inspection of Lower Intestinal Tract, Via Natural or Artificial Opening Endoscopic (ICD-10-PCS; CPT 45378; principal; 2024-05-31 08:30)
DX: Z12.11 Encounter for screening for malignant neoplasm of colon (principal); Z86.0101 Personal history of adenomatous and serrated colon polyps; D12.0 Benign neoplasm of cecum; D12.4 Benign neoplasm of descending colon; D12.5 Benign neoplasm of sigmoid colon; D12.8 Benign neoplasm of rectum; K57.30 Diverticulosis of large intestine without perforation or abscess without bleeding; K64.8 Other hemorrhoids; K76.0 Fatty (change of) liver, not elsewhere classified; R16.1 Splenomegaly, not elsewhere classified; R94.5 Abnormal results of liver function studies; M10.9 Gout, unspecified; G62.9 Polyneuropathy, unspecified; Z85.820 Personal history of malignant melanoma of skin; Z79.899 Other long term (current) drug therapy; Z98.890 Other specified postprocedural states; F17.210 Nicotine dependence, cigarettes, uncomplicated
CPT/HCPCS: 45385; 45380; 88305; J2003; J2250; J2704